=== PATIENT | female | born 1960 | race Caucasian/White ===

== ENCOUNTER 2018-05-30 16:17 | Inpatient (IN) ==
[2018-05-30 17:12] LABS: Baso # (Auto) 0.1 th/mm3 (0.0-0.2); Eos # (Auto) 0.1 th/mm3 (0.0-0.4); Eos % (Auto) 1.1 % (0.0-4.0); Hemoglobin 9.5 gm/dL (11.6-15.3); Lymph % (Auto) 16.6 % (9.0-44.0); Mean Corpuscular Volume 68.8 fL (80.0-100.0); Mean Platelet Volume 8.8 fL (7.0-11.0); Mono % (Auto) 15.7 % (0.0-8.0); Neut # (Auto) 4.1 th/mm3 (1.8-7.7); Neut % (Auto) 65.6 % (16.0-70.0); Platelet Count 143 th/mm3 (150-450); Red Blood Count 4.51 mil/mm3 (4.00-5.30); Red Cell Distribution Width 23.3 % (11.6-17.2); White Blood Count 6.3 th/mm3 (4.0-11.0)
[2018-05-30 17:20] LABS: Mean Corpuscular HGB Conc 30.6 % (32.0-36.0)
--- NOTE | 2018-05-30 17:23 | ED ---
HPI General Chief Complaint: Respiratory Symptoms Stated Complaint: SOB Time Seen by Provider: 05/30/18 16:38 Source: patient Mode of arrival: ambulatory Limitations: no limitations History of Present Illness 57-year-old female presents to the emergency room for evaluation of increasing dyspnea for the past 4 months. Shortness of breath is severe, worsened with exertion or lying flat. It improves with her inhaler. Patient states symptoms have really gotten severe over the past 2 months. She has history of CHF and COPD. She is supposed to be on home oxygen but has not been on it for a while. Patient came down on a bus from [facility] earlier today and was arrested for having an outstanding warrant for battery on an elderly person. While being transported to long-term, she complained of increasing chest pain and shortness of breath. When [facility] arrived her oxygen saturation was 85% on room air. She received a DuoNeb, albuterol treatment, and Solu-Medrol but reports no significant improvement in symptoms. States she is not on any diuretics. Patient has associated mildly productive cough and bilateral lower extremity swelling. She is compliant with her medications. She also has history of stroke and is on Eliquis and aspirin, diabetes, and hypertension. MD Complaint: Reports shortness of breath and cough Onset (ago): month(s) Severity: moderate Consistency/Duration: constant and progressively worsening Relieving factors: oxygen, bronchodilators and upright position Exacerbating factors: lying flat, exertion and coughing Known history of: Reports COPD, congestive heart failure and diabetes Associated symptoms: Reports chest pain, cough, wheezing, sputum production and orthopnea Treatment prior to arrival: Reports oxygen, bronchodilator and other (solumedrol ) Related Data Home oxygen amount: 4 liters Home Medications Medication Instructions Recorded Confirmed Unable to Obtain Home Meds 05/30/18 05/30/18 Allergies Allergy/AdvReac Type Severity Reaction Status Date / Time hydrocodone Allergy Mild Hives Verified 05/30/18 16:34 oxycodone Allergy Mild Hives Verified 05/30/18 16:34 Review of Systems ROS: all other systems reviewed are negative [facility] Social History Social History Substance History: No History of Abuse Second Hand Smoke Exposure: No Smoking Status: Former smoker How Often Do You Have a Drink Containing Alcohol: Never Recent Travel in [facility] within the Last 8 Weeks: No Recent Out of Country Travel within the Last 8 Weeks: No Exam Narrative Exam Narrative: GENERAL: Well-nourished, morbidly obese female no acute distress. Afebrile. Sitting up in bed. SKIN: Focused skin assessment warm/dry. HEAD: Normocephalic. EYES: No scleral icterus. No injection or drainage. NECK: Supple, trachea midline. No JVD or lymphadenopathy. CARDIOVASCULAR: Regular rate and rhythm without murmurs, gallops, or rubs. RESPIRATORY: Breath sounds equal bilaterally. No accessory muscle use. Patient has bilateral expiratory wheezes. Lung sounds distant. Bilateral crackles. MUSCULOSKELETAL: No cyanosis. 2+ pitting edema to bilateral lower extremities. Course Initial Documented Vital Signs Temperature 98.5 F 05/30/18 16:29 Pulse Rate 105 H 05/30/18 16:29 Respiratory Rate 22 05/30/18 16:29 Blood Pressure 154/76 H 05/30/18 16:29 Pulse Oximetry 100 05/30/18 16:29 Last Documented Vital Signs Temperature 98.5 F 05/30/18 16:29 Pulse Rate 115 H 05/30/18 18:00 Respiratory Rate 22 05/30/18 18:00 Blood Pressure 161/77 H 05/30/18 18:00 Pulse Oximetry 94 L 05/30/18 19:39 Medical Decision Making MDM Narrative Medical decision making narrative: 57-year-old female presents the emergency room via ambulance for evaluation of increasing shortness of breath over the past 4 months. She has history of COPD and CHF. States she is supposed to be on oxygen at home but has not been on it recently. She is compliant with her COPD medications but is not on any diuretics. Shortness of breath is exacerbated with lying down or exertion. She has associated mildly productive cough and bilateral lower extremity edema. When the ambulance arrived her oxygen saturation was 85% on room air. She received a DuoNeb, albuterol treatment, and Solu-Medrol and was placed on oxygen resulting in oxygen concentration of 100%. On arrival, patient was given 3 more duo nebs. Physical exam is reassuring. Patient is hard of hearing. She does not appear in any significant respiratory distress. She has bilateral crackles and expiratory wheezes. She also has 2+ pitting edema to bilateral lower extremities. IV access established and basic labs obtained. EKG shows sinus tachycardia with a rate of [address] changes. Signed off by my attending physician. Chest x-ray is negative. CBC shows mild anemia. CMP shows some evidence of dehydration. Troponin is less than 0.02. BNP is elevated at 443. Patient was given 40 mg of Lasix. 1 patient is taken off of oxygen, her saturations dropped to 50-60%. On oxygen, her saturations are steadily in the 90s. She will be admitted for hypoxia, CHF exacerbation, COPD exacerbation. I spoke to Dr. Shore who agrees to admit this patient to his service. Medical Screen Exam Complete: Yes Emergency Medical Condition: Yes Differential Diagnosis Differential Diagnosis: CHF exacerbation, COPD exacerbation, pneumonia, influenza, anxiety attack Lab Data Result diagrams: 05/30/18 16:50 05/30/18 16:50 Lab Results 05/30/18 05/30/18 05/30/18 Range/Units 16:50 16:50 16:50 WBC 6.3 (4.0-11.0) th/mm3 RBC 4.51 (4.00-5.30) mil/mm3 Hgb 9.5 L (11.6-15.3) gm/dL Hct 31.0 L (35.0-46.0) % MCV 68.8 L (80.0-100.0) fL MCH 21.0 L (27.0-34.0) pg MCHC 30.6 L (32.0-36.0) % RDW 23.3 H (11.6-17.2) % Plt Count 143 L (150-450) th/mm3 MPV 8.8 (7.0-11.0) fL Prelim Diff (Auto) Slide review pending Neut % (Auto) 65.6 (16.0-70.0) % Lymph % (Auto) 16.6 (9.0-44.0) % Dyer % (Auto) 15.7 H (0.0-8.0) % Eos % (Auto) 1.1 (0.0-4.0) % Baso % (Auto) 1.0 (0.0-2.0) % Neut # (Auto) 4.1 (1.8-7.7) th/mm3 Lymph # (Auto) 1.0 (1.0-4.8) th/mm3 Dyer # (Auto) 1.0 H (0.0-0.9) th/mm3 Eos # (Auto) 0.1 (0.0-0.4) th/mm3 Baso # (Auto) 0.1 (0.0-0.2) th/mm3 WBC Differential . Diff Scan Auto diff confirmed Differential Comment . Platelet Estimate Low L (Normal) Platelet Morphology Normal (Normal) Target Cells 1+ H (None) Ovalocytes 1+ H (None) PT 12.7 H (9.8-11.6) sec INR 1.3 Ratio APTT 23.1 L (23.4-31.7) sec Puncture Site Patient Temperature VBG pH (7.360-7.400) VBG pCO2 (44-48) mmHG VBG pO2 (35-40) mmHG VBG HCO3 (22-26) mmol/L VBG O2 Saturation (70-76) % VBG O2 Content (9.0-17.0) Vol % VBG Base Excess (-2-2) mmol/L VBG Carboxyhemoglobin (0-4) % VBG Methemoglobin (0-2) % Hemoglobin (12.0-16.0) G/DL Inspired O2 % Critical Value Sodium 134 L (136-145) meq/L Potassium 4.4 (3.5-5.1) meq/L Chloride 95 L (98-107) meq/L Carbon Dioxide 35.2 H (21.0-32.0) meq/L Anion Gap 4 L (5-15) meq/L BUN 26 H (7-18) mg/dL Creatinine 0.77 (0.50-1.00) mg/dL Estimated GFR 78 L (>89) mL/min Random Glucose 133 H (74-106) mg/dL Calcium 7.8 L (8.5-10.1) mg/dL Total Bilirubin 0.7 (0.2-1.0) mg/dL AST 90 H (15-37) U/L ALT 62 H (10-53) U/L Alkaline Phosphatase 206 H (45-117) U/L Troponin I (0.02-0.05) ng/mL B-Natriuretic Peptide (0-100) pg/mL Total Protein 7.2 (6.4-8.2) g/dL Albumin 2.9 L (3.4-5.0) g/dL 11/07/18 11/07/18 11/07/18 Range/Units 16:50 19:00 19:50 WBC (4.0-11.0) th/mm3 RBC (4.00-5.30) mil/mm3 Hgb (11.6-15.3) gm/dL Hct (35.0-46.0) % MCV (80.0-100.0) fL MCH (27.0-34.0) pg MCHC (32.0-36.0) % RDW (11.6-17.2) % Plt Count (150-450) th/mm3 MPV (7.0-11.0) fL Prelim Diff (Auto) Neut % (Auto) (16.0-70.0) % Lymph % (Auto) (9.0-44.0) % Dyer % (Auto) (0.0-8.0) % Eos % (Auto) (0.0-4.0) % Baso % (Auto) (0.0-2.0) % Neut # (Auto) (1.8-7.7) th/mm3 Lymph # (Auto) (1.0-4.8) th/mm3 Dyer # (Auto) (0.0-0.9) th/mm3 Eos # (Auto) (0.0-0.4) th/mm3 Baso # (Auto) (0.0-0.2) th/mm3 WBC Differential Diff Scan Differential Comment Platelet Estimate (Normal) Platelet Morphology (Normal) Target Cells (None) Ovalocytes (None) PT (9.8-11.6) sec INR Ratio APTT (23.4-31.7) sec Puncture Site Right radial Patient Temperature 98.6 VBG pH 7.24 L* (7.360-7.400) VBG pCO2 79 H* (44-48) mmHG VBG pO2 40 (35-40) mmHG VBG HCO3 33 H (22-26) mmol/L VBG O2 Saturation 60 L (70-76) % VBG O2 Content 8.4 L (9.0-17.0) Vol % VBG Base Excess 5.8 H (-2-2) mmol/L VBG Carboxyhemoglobin 1.9 (0-4) % VBG Methemoglobin 0.3 (0-2) % Hemoglobin 9.9 L (12.0-16.0) G/DL Inspired O2 21 % Critical Value Yes Sodium (136-145) meq/L Potassium (3.5-5.1) meq/L Chloride (98-107) meq/L Carbon Dioxide (21.0-32.0) meq/L Anion Gap (5-15) meq/L BUN (7-18) mg/dL Creatinine (0.50-1.00) mg/dL Estimated GFR (>89) mL/min Random Glucose (74-106) mg/dL Calcium (8.5-10.1) mg/dL Total Bilirubin (0.2-1.0) mg/dL AST (15-37) U/L ALT (10-53) U/L Alkaline Phosphatase (45-117) U/L Troponin I Less than 0.02 L (0.02-0.05) ng/mL B-Natriuretic Peptide 443 H (0-100) pg/mL Total Protein (6.4-8.2) g/dL Albumin (3.4-5.0) g/dL Imaging Data Radiologist's impression: Chest X-Ray 05/30/18 16:41 CONCLUSION: Diffuse vascular prominence. No evidence of acute airspace disease. Discharge Plan Discharge Disposition Patient Disposition: 30 Still Patient Discharge Condition Condition: Stable Physicians Team ED Provider: Kayli Marroquin ED Midlevel Provider: Mary Deluna Primary Care Provider: UNKNOWN, Rxs /Orders / Referrals /Forms Prescriptions: No Action Unable to Obtain Home Meds RF: 0 Discharge Interventions Interventions: Vital Signs Last Done: 05/30/18 18:00 Status ED Status: Pending Admission
[2018-05-30 17:25] LABS: Activated Partial Thrombo Time 23.1 sec (23.4-31.7); INR 1.3 Ratio; Prothrombin Time 12.7 sec (9.8-11.6)
[2018-05-30 17:41] LABS: Target Cells 1+
[2018-05-30 17:42] LABS: Ovalocytes 1+; Platelet Morphology Normal (Normal)
--- NOTE | 2018-05-30 17:42 | XR ---
EXAM DATE: 05/30/2018 5:40 PM EST AGE/SEX: 57 years / Female INDICATIONS: . Shortness of breath. CLINICAL DATA: This is the patient's initial encounter. Patient reports that signs and symptoms have been present for 1 day and indicates a pain score of 6/10. MEDICAL/SURGICAL HISTORY: Chronic obstructive pulmonary disease. None. COMPARISON: [facility], CHEST SINGLE AP, 10/15/2015. . FINDINGS: Mild vascular prominence is noted throughout both lungs. There is no evidence of interstitial edema o r consolidating airspace disease. Heart is mildly enlarged. CONCLUSION: Diffuse vascular prominence. No evidence of acute airspace disease. Electronically signed by: Hira Ahmadi MD 05/30/2018 5:41 PM EST
[2018-05-30 17:44] LABS: Alkaline Phosphatase 206 U/L (45-117); Total Protein 7.2 g/dL (6.4-8.2)
[2018-05-30 17:45] LABS: Alanine Aminotransferase 62 U/L (10-53); Albumin 2.9 g/dL (3.4-5.0); Anion Gap 4 meq/L (5-15); Aspartate Aminotransferase 90 U/L (15-37); Blood Urea Nitrogen 26 mg/dL (7-18); Calcium 7.8 mg/dL (8.5-10.1); Carbon Dioxide 35.2 meq/L (21.0-32.0); Chloride 95 meq/L (98-107); Glomerular Filtration Rate 78 mL/min (>89); Glucose,Random 133 mg/dL (74-106); Potassium 4.4 meq/L (3.5-5.1); Sodium 134 meq/L (136-145)
[2018-05-30 19:15] LABS: VBG Base Excess 5.8 mmol/L (-2-2); VBG Blood Gas Oxygen Content 8.4 Vol % (9.0-17.0); VBG PCO2 79 mmHG (44-48); VBG PH 7.24 (7.360-7.400); VBG PO2 40 mmHG (35-40)
[2018-05-30 20:40] LABS: Bilirubin,Urine Negative (Negative); Clarity,Urine Clear (Clear); Color,Urine Colorless (Yellw/Straw); Glucose,Urine (UA) Negative (Negative); Leukocyte Esterase,Urine Negative (Negative); Mucus,Urine Few /lpf (Occasional); Nitrite,Urine Negative (Negative); Specific Gravity,Urine 1.003 (1.002-1.035)
[2018-05-30] MEDS ORDERED: Bisacodyl 10 MG Supp RECTAL PRN (20:44)
[2018-05-30] MEDS ORDERED: Azithromycin Inj 500 MG in Sodium Chlor 0.9% Inj 250 ML IV.SIG SCH (21:00)
[2018-05-30] MEDS: MethylPREDNISolone Sod Succinate Inj 40 MG/ML Vial IV.PUSH SCH (21:26)
[2018-05-30] MEDS: Azithromycin Inj 500 MG in Sodium Chlor 0.9% Inj 250 ML IV.SIG SCH (21:27)
[2018-05-30 21:50] LABS: ABG Base Excess 8.7 mmol/L (-2-2); ABG PCO2 77 mmHg (38-42); ABG PO2 66 mmHg (61-120)
[2018-05-30] MEDS: Budesonide-Formoterol 160/4.5 MCG 6 GM Inhaler INH SCH (22:49)
[2018-05-31 00:10] LABS: ABG Base Excess 6.1 mmol/L (-2-2); ABG PCO2 77 mmHg (38-42); ABG PO2 54 mmHG (61-120)
[2018-05-31] MEDS ORDERED: Dextrose 50% in Water 50 ML Vial IV.PUSH PRN (01:41)
--- NOTE | 2018-05-31 01:58 | P.HPIM ---
History of Present Illness Primary Care Physician: UNKNOWN History of Present Illness: 57-year-old female with a history of stroke on Eliquis, aspirin, diabetes, COPD on 2 L of oxygen continuously, hypertension who is not been on her medications or oxygen for the past month. She traveled down here from [facility] on a bus, arriving 05/30. She was arrested by police due to an open warrant for elderly abuse. All the way to correction complained of shortness of breath, found to have oxygen saturation of 85 on room air, and brought to the ER. Patient reports 3-month history of progressively worsening shortness of breath, cough productive of yellow sputum. She reports pleuritic type chest pain, worse with coughing and with deep breathing which has been present over the past several days. She denies any acute swelling in her extremities. Denies any nausea or vomiting. Again, she has been off all medications as well as oxygen for the past month. Inpatient Certification: I certify that the inpatient services were ordered in accordance with Medicare regulations governing the order. This includes certification that hospital inpatient services are reasonable and necessary and in the case of services not specified as inpatient-only under 42 CFR 419.22(n), that they are appropriately provided as inpatient services in accordance to with the 2-midnight benchmark under 43 CFR 412.3(e) Estimated Total Length of Stay (Days): 3 Plans for Post Hospital Care: Not yet determined Review of Systems All other systems reviewed negative except as stated in HPI [facility] - History History Provided By: Patient - Medical / Surgical Hx Neg / Unobtainable Surgical History: No Previous Surgery - Medical History Medical History: Medical History (Last Updated 05/31/18 @ 01:48 by Tay Shore MD) COPD (chronic obstructive pulmonary disease) Cataract Cirrhosis - Family History Family History: Family History (Last Updated 05/31/18 @ 01:48 by Tay Shore MD) Other Family history non-contributory - Social History I have reviewed the patient's Social History: Yes - Tobacco History Second Hand Smoke Exposure: No Smoking Status: Former smoker - Alcohol History How Often Do You Have a Drink Containing Alcohol: Never - Substance Use History Substance History: No History of Abuse - Travel History Recent Travel in the [facility] Within the Last 8 Weeks: No Recent Travel Out of the Country Within the Last 8 Weeks: No - Immunization History Tetanus Immunization: Unsure Medications and Allergies Active Medications: Active Medications Al Hydroxide/Mg Hydroxide (Milk Of Magnesia Liq) 30 ml PO Q12H PRN PRN Reason: Mild Constipation Albuterol (Duoneb Neb ([facility])) 1 ampul NEB Q4HR NEB [facility] Last Admin: 05/31/18 00:48 Dose: 1 ampul Bisacodyl (Dulcolax Supp) 10 mg RECTAL DAILY PRN PRN Reason: SEVERE CONSITIPATION Budesonide/Formoterol Fumarate (Symbicort 160/4.5 Mcg Inh) 2 puff INH BID [facility] Last Admin: 05/30/18 22:49 Dose: Not Given Chlorhexidine Gluconate (Chlorhexidine 2% Cloth) 3 pack TOPICAL DAILY@0400 [facility] Stop: 06/05/18 03:59 Chlorhexidine Gluconate (Chlorhexidine 2% Cloth) 3 pack TOPICAL DAILY@0400 PRN PRN Reason: Extra cloth needed Stop: 06/05/18 03:59 Azithromycin 500 mg/ Sodium (Chloride) 250 mls @ 250 mls/hr IV.SIG Q24H [facility] Last Infusion: 05/30/18 22:27 Dose: Infused Lactulose (Lactulose Liq) 30 ml PO DAILY PRN PRN Reason: SEVERE CONSITIPATION Methylprednisolone Sodium Succinate (Solumedrol Inj) 60 mg IV.PUSH Q6H [facility] Last Admin: 05/30/18 21:26 Dose: 60 mg Sennosides (Senokot) 17.2 mg PO Q12H PRN PRN Reason: Moderate Constipation Sodium Chloride (Ns Flush) 2 ml IV.FLUSH BID [facility] Last Admin: 05/30/18 21:33 Dose: 2 ml Sodium Chloride (Ns Flush) 2 ml IV.FLUSH PRN PRN PRN Reason: FLUSH AFTER USING IV ACCESS Allergies Allergy/AdvReac Type Severity Reaction Status Date / Time hydrocodone Allergy Mild Hives Verified 05/30/18 16:34 oxycodone Allergy Mild Hives Verified 05/30/18 16:34 Home Medications Medication Instructions Recorded Confirmed Type Unable to Obtain Home Meds 05/30/18 05/30/18 History Exam Vital signs: Vital Signs 05/30/18 16:29 05/30/18 16:47 05/30/18 17:15 Temperature 98.5 F Pulse Rate 105 H 111 H 114 H Respiratory Rate 22 22 Blood Pressure 154/76 H 129/81 Pulse Oximetry 100 05/30/18 17:19 05/30/18 18:00 05/30/18 19:39 Temperature Pulse Rate 115 H Respiratory Rate 22 Blood Pressure 161/77 H Pulse Oximetry 94 L 98 94 L 05/30/18 22:30 05/30/18 23:00 05/30/18 23:10 Temperature 98.6 F Pulse Rate 119 H 110 H Respiratory Rate 30 H 34 H Blood Pressure 138/85 136/77 Pulse Oximetry 94 L 93 L 99 05/31/18 00:00 05/31/18 00:51 05/31/18 01:00 Temperature 98.6 F Pulse Rate 106 H 101 H 112 H Respiratory Rate 33 H 22 34 H Blood Pressure 143/78 H 154/75 H Pulse Oximetry 95 96 97 Intake & Output 05/30/18 05/30/18 05/31/18 06:59 18:59 06:59 Intake Total 250 / 250 Balance 250 / 250 Weight 104.326 kg 95.1 kg Intake: IV 250 / 250 Azithromycin Inj 500 MG In NS 250 / 250 Inj 250 ML @ 250 mls/hr IV.SIG Q24H [facility] Rx#:[id number] Other: Date of Last Bowel Movement 05/29/18 Weight On Admission 95.1 kg Narrative: GENERAL: Patient sitting up in bed. Appears comfortable. Alert and oriented x3. She does have mildly dysarthric speech. SKIN: Warm and dry. HEAD: Atraumatic. Normocephalic. EYES: Pupils unreactive, left pupil clouded. Patient reports this is at baseline, has had bilateral eye surgery. No scleral icterus. No injection or drainage. ENT: No nasal bleeding or discharge. Mucous membranes pink and moist. NECK: Trachea midline. No JVD. CARDIOVASCULAR: Regular rate and rhythm. RESPIRATORY: No accessory muscle use. Clear to auscultation. Breath sounds equal bilaterally. Diminished breath sounds secondary to body habitus. GASTROINTESTINAL: Abdomen soft, non-tender, nondistended. Hepatic and splenic margins not palpable. MUSCULOSKELETAL: Extremities without clubbing, cyanosis. Trace bilateral lower extremity edema.. No obvious deformities. NEUROLOGICAL: Awake and alert. No obvious cranial nerve deficits. Motor grossly within normal limits. Five out of 5 muscle strength in the arms and legs. PSYCHIATRIC: Appropriate mood and affect; insight and judgment normal. Results - Labs CBC & Chem 7: 05/30/18 16:50 05/30/18 16:50 Labs: Short CBC 05/30/18 Range/Units 16:50 WBC 6.3 (4.0-11.0) th/mm3 Hgb 9.5 L (11.6-15.3) gm/dL Hct 31.0 L (35.0-46.0) % Plt Count 143 L (150-450) th/mm3 BMP 05/30/18 16:50 Sodium 134 L Potassium 4.4 Chloride 95 L Carbon Dioxide 35.2 H BUN 26 H Creatinine 0.77 Calcium 7.8 L Cardiac Enzymes 05/30/18 Range/Units 19:50 Troponin I Less than 0.02 L (0.02-0.05) ng/mL Liver Function 05/30/18 Range/Units 16:50 Total Bilirubin 0.7 (0.2-1.0) mg/dL AST 90 H (15-37) U/L ALT 62 H (10-53) U/L Alkaline Phosphatase 206 H (45-117) U/L Albumin 2.9 L (3.4-5.0) g/dL Urine 05/30/18 Range/Units 20:20 Urine Color Colorless (Yellw/Straw) Urine Clarity Clear (Clear) Urine pH 5.0 (5.0-8.5) Ur Specific Wilbur 1.003 (1.002-1.035) Urine Protein Negative (Neg-Trace) mg/dL Urine Glucose (UA) Negative (Negative) mg/dL - Imaging Impressions Chest X-Ray 05/30/18 16:41 CONCLUSION: Diffuse vascular prominence. No evidence of acute airspace disease. Caprini VTE Risk Assessment Caprini VTE Risk Assessment: No/Low Risk (score <= 1) Caprini Risk Assessment Model: Point Value = 1 Point Value = 2 Point Value = 3 Point Value = 5 Age 41-60 Minor surgery BMI > 25 kg/m2 Swollen legs Varicose veins or History of unexplained or recurrent spontaneous Oral contraceptives or hormone replacement Sepsis (< 1 month) Serious lung disease, including pneumonia (< 1 month) Abnormal pulmonary function Acute myocardial infarction Congestive heart failure (< 1 month) History of inflammatory bowel disease Medical patient at bed rest Age 61-74 Arthroscopic surgery Major open surgery (> 45 min) Laparoscopic surgery (> 45 min) Malignancy Confined to bed (> 72 hours) Immobilizing plaster cast Central venous access Age >= 75 History of VTE Family history of VTE Factor V Leiden Prothrombin [id number] Lupus anticoagulant Anticardiolipin antibodies Elevated serum homocysteine Heparin-induced thrombocytopenia Other congenital or acquired thrombophilia Stroke (< 1 month) Elective arthroplasty Hip, pelvis, or leg fracture Acute spinal cord injury (< 1 month) Prophylaxis Regimen: Total Risk Factor Score Risk Level Prophylaxis Regimen 0-1 Low Early ambulation 2 Moderate Order ONE of the following: *Sequential Compression Device (SCD) *Heparin 5000 units SQ BID 3-4 Higher Order ONE of the following medications: *Heparin 5000 units SQ TID *Enoxaparin/Lovenox 40 mg SQ daily (WT < 150 kg, CrCl > 30 mL/min) *Enoxaparin/Lovenox 30 mg SQ daily (WT < 150 kg, CrCl > 10-29 mL/min) *Enoxaparin/Lovenox 30 mg SQ BID (WT < 150 kg, CrCl > 30 mL/min) AND/OR *Sequential Compression Device (SCD) 5 or more Highest Order ONE of the following medications: *Heparin 5000 units SQ TID (Preferred with Epidurals) *Enoxaparin/Lovenox 40 mg SQ daily (WT < 150 kg, CrCl > 30 mL/min) *Enoxaparin/Lovenox 30 mg SQ daily (WT < 150 kg, CrCl > 10-29 mL/min) *Enoxaparin/Lovenox 30 mg SQ BID (WT < 150 kg, CrCl > 30 mL/min) AND *Sequential Compression Device (SCD) Assessment and Plan - Plan //Acute hypercapnic respiratory failure //COPD exacerbation //possible CHF exacerbation pCO2 in the 70s. Unknown baseline. -Chest x-ray with diffuse vascular prominence. BNP 443 -There is a possibility that patient is at baseline and simply does not want to go to correction (she has a warrant for elder abuse and officer is at bedside.). -Echo pending. -Did not tolerate BiPAP. Appears to be breathing comfortably however. Will start on IV steroids, gentle diuresis, duo nebs. Close monitoring in ICU. //Pleuritic type chest pain. Due to recent travel, will check CT pulmonary angiogram. Check CT pulmonary angiogram. //History of stroke. Reportedly on Eliquis. Will start on aspirin. We will need to obtain home meds. Appreciate nursing assistance. //Diabetes mellitus. Chronic. Glucose elevated 133. Will be on steroids. Will start on diabetic diet and insulin sliding scale. Monitor. //Transaminitis //Patient reports history of cirrhosis. -Likely chronic. Will monitor. Discussed Condition With: Patient, nurse, ED physician. Discharge Planning: Pending improvement or stability. Patient has a warrant for her arrest and officer is at bedside.
[2018-05-31] MEDS ORDERED: Haloperidol Inj 5 MG/ML Ampul IV.PUSH ONE (02:35)
[2018-05-31] MEDS: MethylPREDNISolone Sod Succinate Inj 40 MG/ML Vial IV.PUSH SCH ×4 (02:59→21:18)
[2018-05-31] MEDS: Insulin NovoLOG Aspart Correctional Sugar Inj SQ SCH ×5 (02:59→21:19)
--- NOTE | 2018-05-31 03:27 | CT ---
EXAM DATE: 05/31/2018 2:58 AM EST AGE/SEX: 57 years / Female INDICATIONS: Shortness of breath. CLINICAL DATA: This is the patient's initial encounter. Patient reports that signs and symptoms have been present for 1 day and indicates a pain score of 0/10. MEDICAL/SURGICAL HISTORY: Chronic obstructive pulmonary disease. None. RADIATION DOSE: 23.11 CTDI (mGy) COMPARISON: . TECHNIQUE: Volumetric scanning was performed using a multi-row detector CT scanner during bolus infu ginny of 75 ml Omnipaque 350 (iohexol) nonionic water-soluble contrast as a single exam dose. The clay a was post processed with a variety of visualization algorithms including full volume maximum intensi ty projection and sliding thin slab reformation. Using automated exposure control and adjustment of the mA and/or kV according to patient size, radiation dose was kept as low as reasonably achievable t o obtain optimal diagnostic quality images. DICOM format image data is available electronically for review and comparison. FINDINGS: Pulmonary Arteries: No filling defects are seen in the pulmonary arteries out to the subsegmental ve ssels. The left and right pulmonary arteries are normal in diameter. Lung: Small infiltrate in the posterior right lung base. Subpleural bleb in the anteromedial left up per lobe Effusion: None. Mediastinum: No evidence of mediastinal or hilar adenopathy. Other: The axilla is unremarkable. CONCLUSION: This study is negative for pulmonary embolism. Electronically signed by: Favio Flores MD 05/31/2018 3:25 AM EST
[2018-05-31] MEDS ORDERED: Chlorhexidine Gluconate 2% 1 Pack (2 Cloths) TOPICAL PRN (04:00)
[2018-05-31] MEDS: Chlorhexidine Gluconate 2% 1 Pack (2 Cloths) TOPICAL SCH (04:00)
[2018-05-31 05:52] LABS: Baso % (Auto) 0.1 % (0.0-2.0); Hematocrit 31.4 % (35.0-46.0); Hemoglobin 9.1 gm/dL (11.6-15.3); Lymph # (Auto) 0.2 th/mm3 (1.0-4.8); Lymph % (Auto) 8.5 % (9.0-44.0); Mean Corpuscular Hemoglobin 20.5 pg (27.0-34.0); Mean Corpuscular Volume 70.6 fL (80.0-100.0); Mean Platelet Volume 8.7 fL (7.0-11.0); Mono # (Auto) 0.1 th/mm3 (0.0-0.9); Mono % (Auto) 3.3 % (0.0-8.0); Neut # (Auto) 2.5 th/mm3 (1.8-7.7); Neut % (Auto) 88.1 % (16.0-70.0); Platelet Count 119 th/mm3 (150-450); Red Blood Count 4.45 mil/mm3 (4.00-5.30); Red Cell Distribution Width 23.6 % (11.6-17.2); White Blood Count 2.8 th/mm3 (4.0-11.0)
[2018-05-31 05:54] LABS: ABG Base Excess 8.5 mmol/L (-2-2); ABG PCO2 79 mmHg (38-42); ABG PO2 53 mmHG (61-120)
[2018-05-31 06:10] LABS: Alanine Aminotransferase 60 U/L (10-53); Albumin 2.8 g/dL (3.4-5.0); Anion Gap 3 meq/L (5-15); Aspartate Aminotransferase 66 U/L (15-37); Blood Urea Nitrogen 20 mg/dL (7-18); Calcium 7.9 mg/dL (8.5-10.1); Carbon Dioxide 36.7 meq/L (21.0-32.0); Chloride 99 meq/L (98-107); Glomerular Filtration Rate Greater Than 89 mL/min (>89); Glucose,Random 199 mg/dL (74-106); Potassium 4.3 meq/L (3.5-5.1); Sodium 139 meq/L (136-145)
[2018-05-31 06:12] LABS: Alkaline Phosphatase 185 U/L (45-117)
[2018-05-31 07:21] LABS: Lymphocytes 4 % (9-44); Metamyelocytes 1 % (0-1); Monocytes 3 % (0-8); Platelet Morphology Normal (Normal); Tallied Nucleated RBC 6 (0-0); Target Cells 1+
[2018-05-31] MEDS ORDERED: Haloperidol Inj 5 MG/ML Ampul IV.PUSH PRN (08:09)
[2018-05-31] MEDS ORDERED: LORazepam 1 MG Tablet PO PRN (08:09)
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
[2018-05-31 09:48] LABS: % Iron Saturation 1.8 % (20-50); Folate 10.6 ng/mL (3.1-17.5)
[2018-05-31] MEDS: Multivitamin Inj 10 ML, Thiamine Inj 100 MG, Folic Acid Inj 1 MG in Sodium Chloride 0.4... IV.SIG SCH (10:08)
--- NOTE | 2018-05-31 10:14 | ECG ---
Date Performed: 05/30/2018 Time Performed: 16:48:28 PTAGE: 57 years EKG: SINUS TACHYCARDIA ABNORMAL RHYTHM ECG Since the PREVIOUS TRACING , no significant change noted PREVIOUS TRACIN10/15/2015 08.07 DOCTOR: Matt Mascorro Interpretating Date/Time 05/31/2018 10:12:36
--- NOTE | 2018-05-31 13:02 | ECHRPT ---
Indication: CARDIOMYOPATHY CONCLUSIONS The left ventricular systolic function is hyperdynamic with an estimated ejection fraction in the ra nge of 65- 70%. Normal left ventricular size. Wall thickness is normal. No regional wall motion abnormalities are present. Mild thickening of the tricuspid valve leaflets. There is mild tricuspid valve regurgitation. The estimated pulmonary arterial pressure is 63 mmHg. aortic valve mean gradient = 13 mm hg c/w mild stenosis BP: / HR: Rhythm: Sinus MEASUREMENTS (Male / Female) Normal Values Technical Quality:Poor 2D ECHO LV Diastolic Diameter PLAX 4.8 cm 4.2 - 5.9 / 3.9 - 5.3 cm LV Systolic Diameter PLAX 3.0 cm IVS Diastolic Thickness 1.1 cm 0.6 - 1.0 / 0.6 - 0.9 cm LVPW Diastolic Thickness 1.1 cm 0.6 - 1.0 / 0.6 - 0.9 cm LV Relative Wall Thickness 0.5 LVOT Diameter 1.9 cm LA Systolic Diameter LX 3.5 cm 3.0 - 4.0 / 2.7 - 3.8 cm M-MODE Aortic Root Diameter MM 2.6 cm AV Cusp Separation MM 1.0 cm DOPPLER AV Peak Velocity 243.5 cm/s AV Peak Gradient 23.7 mmHg AV Mean Gradient 12.0 mmHg AV Velocity Time Integral 35.8 cm LVOT Peak Velocity 173.0 cm/s LVOT Peak Gradient 12.0 mmHg LVOT Velocity Time Integral 29.1 cm AV Area Cont Eq vti 2.3 cm AV Area Cont Eq pk 2.0 cm MV Area PHT 4.9 cm Mitral E Point Velocity 110.0 cm/s Mitral A Point Velocity 125.0 cm/s Mitral E to A Ratio 0.9 TR Peak Velocity 364.0 cm/s TR Peak Gradient 53.0 mmHg Right Atrial Pressure 10.0 mmHg Pulmonary Artery Systolic Pressu 63.0 mmHg Right Ventricular Systolic Press 63.0 mmHg PV Peak Velocity 162.0 cm/s PV Peak Gradient 10.5 mmHg FINDINGS LEFT VENTRICLE The left ventricular systolic function is hyperdynamic with an estimated ejection fraction in the ra nge of 65- 70%. Normal left ventricular size. Wall thickness is normal. No regional wall motion abnormalities are present. RIGHT VENTRICLE Normal right ventricular size and systolic function. LEFT ATRIUM The left atrial size is normal. RIGHT ATRIUM The right atrial size is normal. ATRIAL SEPTUM Normal atrial septal thickness without atrial level shunting by limited color doppler interrogation. AORTA The aortic root and proximal ascending aorta are normal in size on limited imaging. MITRAL VALVE Structurally normal mitral valve. No mitral valve stenosis or regurgitation. AORTIC VALVE Trileaflet aortic valve. No aortic valve stenosis or regurgitation. TRICUSPID VALVE Mild thickening of the tricuspid valve leaflets. There is mild tricuspid valve regurgitation. The estimated pulmonary arterial pressure is 63 mmHg. PULMONARY VALVE No pulmonary valve regurgitation or stenosis. VESSELS The inferior vena cava is normal in size. PERICARDIUM No pericardial effusion. Hal Chaudhry MD, FACC, FSCAI (Electronically Signed) Final Date:31 May 2018 13:00
[2018-05-31] MEDS: Budesonide-Formoterol 160/4.5 MCG 6 GM Inhaler INH SCH ×2 (15:05→21:19)
--- NOTE | 2018-05-31 16:08 | MB ---
cc: Donald Bennett MD DATE: 05/31/2018 REASON FOR CONSULTATION: COPD exacerbation. HISTORY OF PRESENT ILLNESS: The patient is a 57-year-old female with a known history of COPD, long smoking history, continued to smoke up until the time of hospitalization. The patient has history of previous stroke. She is diabetic, hypertensive and she has oxygen therapy at home at 2 liters nasal cannula. Complains of increasing shortness of breath for about a week, progressively worse. She was on the way to care home upon presentation; however, brought to the emergency room because of increasing shortness of breath, oxygen saturation on room air at 85%. She has not been using her oxygen apparently for weeks now. PAST MEDICAL HISTORY: COPD, hypertension, diabetes mellitus, respiratory failure, on oxygen therapy, and previous CVA. FAMILY HISTORY: Noncontributory. SOCIAL HISTORY: She smokes a pack of cigarettes a day. She does not drink alcohol. No TB. No industrial exposure. MEDICATIONS: Include: 1. DuoNeb every 4 hours. 2. Budesonide/formoterol. 3. Zithromax. 4. Solu-Medrol. ALLERGIES: HYDROCODONE, OXYCODONE. REVIEW OF SYSTEMS: A 12-point review of systems as per HPI and past history, otherwise negative. PHYSICAL EXAMINATION: VITAL SIGNS: Temperature 98, pulse 100, respirations 20, blood pressure 150/70, oxygen saturation 94% on oxygen via nasal cannula. HEENT: Unremarkable. Eyes without icterus. NECK: Without adenopathy, thyroid enlargement. Central trachea. CHEST: Scattered rhonchi bilaterally. CARDIAC: PMI not appreciated. S1, S2 audible. No murmur. No rub. ABDOMEN: Lax. Audible bowel sounds. PSYCHIATRIC: No clubbing, cyanosis, edema. SKIN: Normal. LYMPHATIC: No lymphadenopathy. LABORATORY DATA: White count 6000, hemoglobin 9.5, hematocrit 31, platelets 143,000. Sodium 134, potassium 4.4, BUN 26, creatinine 0.7. Chest x-ray, vascular prominence, no acute infiltrate. IMPRESSION: 1. Chronic obstructive pulmonary disease exacerbation. 2. Hypoxic respiratory failure. 3. Obesity. 4. Tobacco abuse. 5. Diabetes mellitus. 6. Hypertension. 7. History of cerebrovascular accident. PLAN: The patient will be maintained on oxygen therapy as needed, bronchodilator therapy, steroid therapy as well as antibiotic therapy continued. We will check her baseline pulmonary function. I do thank you for asking me to partake in the Ms. Rodriguez's care. MD AMARI Reeves/luna , 03:24 PM , 03:34 PM
[2018-05-31 17:23] LABS: ABG Base Excess 11.2 mmol/L (-2-2); ABG PCO2 79 mmHg (38-42); ABG PO2 71 mmHG (61-120)
[2018-05-31] MEDS ORDERED: Azithromycin Inj 500 MG in Sodium Chlor 0.9% Inj 250 ML IV.SIG SCH (21:00)
[2018-05-31] MEDS: Azithromycin Inj 500 MG in Sodium Chlor 0.9% Inj 250 ML IV.SIG SCH (21:18)
[2018-06-01] MEDS: Chlorhexidine Gluconate 2% 1 Pack (2 Cloths) TOPICAL SCH (03:09)
[2018-06-01] MEDS: Insulin NovoLOG Aspart Correctional Sugar Inj SQ SCH ×5 (03:09→20:34)
[2018-06-01] MEDS: MethylPREDNISolone Sod Succinate Inj 40 MG/ML Vial IV.PUSH SCH ×4 (03:09→20:33)
[2018-06-01 06:23] LABS: Baso % (Auto) 0.3 % (0.0-2.0); Hematocrit 30.6 % (35.0-46.0); Lymph # (Auto) 0.3 th/mm3 (1.0-4.8); Mean Corpuscular Hemoglobin 20.4 pg (27.0-34.0); Mean Corpuscular Volume 69.7 fL (80.0-100.0); Mean Platelet Volume 8.6 fL (7.0-11.0); Mono # (Auto) 0.5 th/mm3 (0.0-0.9); Mono % (Auto) 7.5 % (0.0-8.0); Neut # (Auto) 6.1 th/mm3 (1.8-7.7); Neut % (Auto) 88.2 % (16.0-70.0); Platelet Count 108 th/mm3 (150-450); Red Blood Count 4.39 mil/mm3 (4.00-5.30); Red Cell Distribution Width 23.3 % (11.6-17.2); White Blood Count 6.9 th/mm3 (4.0-11.0)
[2018-06-01 06:26] LABS: Mean Corpuscular HGB Conc 29.3 % (32.0-36.0)
[2018-06-01 06:43] LABS: Albumin 2.9 g/dL (3.4-5.0); Anion Gap 2 meq/L (5-15); Aspartate Aminotransferase 50 U/L (15-37); Blood Urea Nitrogen 22 mg/dL (7-18); Calcium 8.1 mg/dL (8.5-10.1); Carbon Dioxide 41.4 meq/L (21.0-32.0); Chloride 101 meq/L (98-107); Glomerular Filtration Rate Greater Than 89 mL/min (>89); Glucose,Random 143 mg/dL (74-106); Potassium 4.6 meq/L (3.5-5.1); Sodium 144 meq/L (136-145)
[2018-06-01 06:46] LABS: Alanine Aminotransferase 54 U/L (10-53); Alkaline Phosphatase 169 U/L (45-117)
[2018-06-01 07:26] LABS: Lymphocytes 2 % (9-44); Monocytes 5 % (0-8); Stomatocytes 1+; Tallied Nucleated RBC 7 (0-0); Target Cells 1+
[2018-06-01 07:27] LABS: Platelet Morphology Normal (Normal)
--- NOTE | 2018-06-01 08:15 | P.PNIM ---
Subjective Interval history: f/u; respiratory failure/ alcohol withdrawal with moderate sob and wheezing; on oxygen via [place]. has dry cough- no fever. complaining of mild headache. d/w the RN and no other acute issues over night. Physical Exam Vital signs: Vital Signs 05/31/18 08:36 05/31/18 09:00 05/31/18 10:00 Temperature Pulse Rate 114 H 101 H 111 H Respiratory Rate 24 26 H 40 H Blood Pressure 129/83 146/68 H Pulse Oximetry 92 L 94 L 92 L 05/31/18 10:21 05/31/18 11:00 05/31/18 11:23 Temperature Pulse Rate 124 H 110 H 106 H Respiratory Rate 28 H 18 22 Blood Pressure 144/66 H Pulse Oximetry 96 05/31/18 12:00 05/31/18 13:00 05/31/18 14:00 Temperature 98.6 F Pulse Rate 109 H 104 H 115 H Respiratory Rate 24 13 23 Blood Pressure 145/70 H 155/71 H 173/77 H Pulse Oximetry 97 100 05/31/18 14:01 05/31/18 15:00 05/31/18 15:55 Temperature Pulse Rate 115 H 114 H 107 H Respiratory Rate 26 H 22 20 Blood Pressure 173/77 H 159/73 H Pulse Oximetry 94 L 05/31/18 16:00 05/31/18 17:00 05/31/18 18:00 Temperature 98.6 F Pulse Rate 108 H 111 H 115 H Respiratory Rate 28 H 37 H 24 Blood Pressure 142/71 H 143/63 H 126/56 L Pulse Oximetry 100 94 L 96 05/31/18 19:00 05/31/18 20:00 05/31/18 20:11 Temperature 98.1 F Pulse Rate 109 H 106 H 108 H Respiratory Rate 15 13 14 Blood Pressure 114/57 L 107/57 L Pulse Oximetry 95 98 05/31/18 20:12 05/31/18 21:00 05/31/18 22:00 Temperature Pulse Rate 110 H 112 H Respiratory Rate 13 26 H Blood Pressure 112/58 L 110/58 L Pulse Oximetry 97 96 94 L 05/31/18 23:00 05/31/18 23:17 06/01/18 00:00 Temperature Pulse Rate 109 H 109 H 109 H Respiratory Rate 25 H 18 24 Blood Pressure 118/66 126/68 Pulse Oximetry 95 98 06/01/18 01:00 06/01/18 02:00 06/01/18 03:00 Temperature Pulse Rate 109 H 103 H 107 H Respiratory Rate 13 17 19 Blood Pressure 136/73 122/62 151/74 H Pulse Oximetry 97 95 95 06/01/18 04:00 06/01/18 04:31 06/01/18 05:00 Temperature 98.8 F Pulse Rate 101 H 101 H 101 H Respiratory Rate 12 30 H 11 L Blood Pressure 119/57 L 116/60 Pulse Oximetry 96 95 06/01/18 06:00 06/01/18 08:04 Temperature Pulse Rate 111 H 100 H Respiratory Rate 26 H 30 H Blood Pressure 144/73 H Pulse Oximetry 91 L 96 Intake & Output 05/31/18 06/01/18 06/01/18 18:59 06:59 18:59 Intake Total 1531.2 / 1531.2 730 / 730 Output Total 700 / 700 Balance 831.2 / 831.2 730 / 730 Weight 93.6 kg Intake: IV 511.2 / 511.2 250 / 250 Azithromycin Inj 500 MG In NS 250 / 250 Inj 250 ML @ 250 mls/hr IV.SIG Q24H [facility] Rx#:[id number] [id number] Inj 10 ML Thiamine Inj 511.2 / 511.2 100 MG Folvite Inj 1 MG In 1/2 Normal Saline Inj 500 ML @ 127. 8 mls/hr IV.SIG Q24H [facility] Rx#: [id number] Oral 1020 / 1020 480 / 480 Output: Urine 700 / 700 Other: # Voids 3 Date of Last Bowel Movement 05/29/18 05/29/18 # Bowel Movements 0 - Constitutional moderate distress - Routine Respiratory Exam Present: prolonged expiratory phase, wheezes - Routine Cardiovascular Exam Present: RRR, tachycardia - Routine Abdominal Exam Present: soft - Routine Extremities Exam Comments: no pedal edema. - Routine Neurological Exam Present: alert, oriented X3 Results - Labs CBC & Chem 7: 06/01/18 06:12 06/01/18 06:12 Laboratory Results - last 24 hr 05/31/18 05/31/18 05/31/18 04:59 07:50 12:03 WBC RBC Hgb Hct MCV MCH MCHC RDW Plt Count MPV Prelim Diff (Auto) Neut % (Auto) Lymph % (Auto) [place] % (Auto) Eos % (Auto) Baso % (Auto) Neut # (Auto) Lymph # (Auto) [place] # (Auto) Eos # (Auto) Baso # (Auto) WBC Differential Seg Neuts % (Manual) Band Neuts % (Manual) Lymphocytes % (Manual) Monocytes % (Manual) Abs Neuts (Manual) Nucleated RBCs/100 WBC Differential Comment Platelet Estimate Platelet Morphology Target Cells Stomatocytes Puncture Site Patient Temperature O2 Saturation ABG pH ABG pCO2 ABG pO2 ABG HCO3 ABG O2 Content ABG Base Excess ABG Methemoglobin [place] Test Hemoglobin Carboxyhemoglobin O2 Delivery Device Liter Flow Critical Value Sodium Potassium Chloride Carbon Dioxide Anion Gap BUN Creatinine Estimated GFR POC Glucose 163 H 213 H Random Glucose Calcium Iron 9 L TIBC 504 H % Saturation 1.8 L Ferritin 10 Total Bilirubin AST ALT Alkaline Phosphatase Total Protein Albumin Vitamin B12 994 H Folate 10.6 05/31/18 05/31/18 05/31/18 16:26 17:14 21:17 WBC RBC Hgb Hct MCV MCH MCHC RDW Plt Count MPV Prelim Diff (Auto) Neut % (Auto) Lymph % (Auto) [place] % (Auto) Eos % (Auto) Baso % (Auto) Neut # (Auto) Lymph # (Auto) [place] # (Auto) Eos # (Auto) Baso # (Auto) WBC Differential Seg Neuts % (Manual) Band Neuts % (Manual) Lymphocytes % (Manual) Monocytes % (Manual) Abs Neuts (Manual) Nucleated RBCs/100 WBC Differential Comment Platelet Estimate Platelet Morphology Target Cells Stomatocytes Puncture Site Right radial Patient Temperature 98.6 O2 Saturation 91 ABG pH 7.30 L ABG pCO2 79 H* ABG pO2 71 ABG HCO3 38 H ABG O2 Content 11.2 L ABG Base Excess 11.2 H ABG Methemoglobin 1.3 [place] Test Present Hemoglobin 8.7 L Carboxyhemoglobin 2.2 O2 Delivery Device Nasal cannula Liter Flow 4.00 Critical Value Yes Sodium Potassium Chloride Carbon Dioxide Anion Gap BUN Creatinine Estimated GFR POC Glucose 170 H 164 H Random Glucose Calcium Iron TIBC % Saturation Ferritin Total Bilirubin AST ALT Alkaline Phosphatase Total Protein Albumin Vitamin B12 Folate 06/01/18 06/01/18 06/01/18 03:08 06:12 06:12 WBC 6.9 RBC 4.39 Hgb 9.0 L Hct 30.6 L MCV 69.7 L MCH 20.4 L MCHC 29.3 L RDW 23.3 H Plt Count 108 L MPV 8.6 Prelim Diff (Auto) Slide review pending Neut % (Auto) 88.2 H Lymph % (Auto) 4.0 L [place] % (Auto) 7.5 Eos % (Auto) 0.0 Baso % (Auto) 0.3 Neut # (Auto) 6.1 Lymph # (Auto) 0.3 L [place] # (Auto) 0.5 Eos # (Auto) 0.0 Baso # (Auto) 0.0 WBC Differential Manual diff final Seg Neuts % (Manual) 90 H Band Neuts % (Manual) 3 Lymphocytes % (Manual) 2 L Monocytes % (Manual) 5 Abs Neuts (Manual) 6.4 Nucleated RBCs/100 WBC 7 H Differential Comment . Platelet Estimate Low L Platelet Morphology Normal Target Cells 1+ H Stomatocytes 1+ H Puncture Site Patient Temperature O2 Saturation ABG pH ABG pCO2 ABG pO2 ABG HCO3 ABG O2 Content ABG Base Excess ABG Methemoglobin [place] Test Hemoglobin Carboxyhemoglobin O2 Delivery Device Liter Flow Critical Value Sodium 144 Potassium 4.6 Chloride 101 Carbon Dioxide 41.4 H Anion Gap 2 L BUN 22 H Creatinine 0.63 Estimated GFR Greater than 89 POC Glucose 182 H Random Glucose 143 H Calcium 8.1 L Iron TIBC % Saturation Ferritin Total Bilirubin 0.6 AST 50 H ALT 54 H Alkaline Phosphatase 169 H Total Protein 7.0 Albumin 2.9 L Vitamin B12 Folate Assessment and Plan - Plan Acute hypercapnic respiratory failure COPD exacerbation possible CHF exacerbation pCO2 in the 70s. Unknown baseline. -Chest x-ray with diffuse vascular prominence. BNP 443 -CTA chest negative for PE -echo with EF 60%/ no regional wall motion abnormalities and mild aortic stenosis -continue on IV steroids, gentle diuresis, antibiotic, duo nebs. Close monitoring in ICU. -pulmonary consult appreciated. Alcohol abuse/ withdrawal - continue on CIWA protocol Anemia; hypochromic, microcytic iron panel noted; occult blood pending. H/H stable; continue to monitor. History of stroke. Reportedly on Eliquis. continue aspirin. We will need to obtain home meds. Diabetes mellitus. Chronic. Glucose elevated 133. Will be on steroids. diabetic diet and insulin sliding scale. Monitor. elevated LFT's/ history of Cirrhosis- continue to monitor. will keep in ICU today. she has a warrant for elder abuse and officer is at bedside.
[2018-06-01] MEDS: Budesonide-Formoterol 160/4.5 MCG 6 GM Inhaler INH SCH ×2 (08:40→20:34)
[2018-06-01] MEDS: Multivitamin Inj 10 ML, Thiamine Inj 100 MG, Folic Acid Inj 1 MG in Sodium Chloride 0.4... IV.SIG SCH (09:10)
--- NOTE | 2018-06-01 09:47 | P.PN ---
Subjective Interval history: alert less sob Physical Exam Vital signs: Vital Signs 05/31/18 10:00 05/31/18 10:21 05/31/18 11:00 Temperature Pulse Rate 111 H 124 H 110 H Respiratory Rate 40 H 28 H 18 Blood Pressure 146/68 H 144/66 H Pulse Oximetry 92 L 96 05/31/18 11:23 05/31/18 12:00 05/31/18 13:00 Temperature 98.6 F Pulse Rate 106 H 109 H 104 H Respiratory Rate 22 24 13 Blood Pressure 145/70 H 155/71 H Pulse Oximetry 97 100 05/31/18 14:00 05/31/18 14:01 05/31/18 15:00 Temperature Pulse Rate 115 H 115 H 114 H Respiratory Rate 23 26 H 22 Blood Pressure 173/77 H 173/77 H 159/73 H Pulse Oximetry 94 L 05/31/18 15:55 05/31/18 16:00 05/31/18 17:00 Temperature 98.6 F Pulse Rate 107 H 108 H 111 H Respiratory Rate 20 28 H 37 H Blood Pressure 142/71 H 143/63 H Pulse Oximetry 100 94 L 05/31/18 18:00 05/31/18 19:00 05/31/18 20:00 Temperature 98.1 F Pulse Rate 115 H 109 H 106 H Respiratory Rate 24 15 13 Blood Pressure 126/56 L 114/57 L 107/57 L Pulse Oximetry 96 95 98 05/31/18 20:11 05/31/18 20:12 05/31/18 21:00 Temperature Pulse Rate 108 H 110 H Respiratory Rate 14 13 Blood Pressure 112/58 L Pulse Oximetry 97 96 05/31/18 22:00 05/31/18 23:00 05/31/18 23:17 Temperature Pulse Rate 112 H 109 H 109 H Respiratory Rate 26 H 25 H 18 Blood Pressure 110/58 L 118/66 Pulse Oximetry 94 L 95 06/01/18 00:00 06/01/18 01:00 06/01/18 02:00 Temperature Pulse Rate 109 H 109 H 103 H Respiratory Rate 24 13 17 Blood Pressure 126/68 136/73 122/62 Pulse Oximetry 98 97 95 06/01/18 03:00 06/01/18 04:00 06/01/18 04:31 Temperature 98.8 F Pulse Rate 107 H 101 H 101 H Respiratory Rate 19 12 30 H Blood Pressure 151/74 H 119/57 L Pulse Oximetry 95 96 06/01/18 05:00 06/01/18 06:00 06/01/18 08:00 Temperature 97.9 F Pulse Rate 101 H 111 H 102 H Respiratory Rate 11 L 26 H 26 H Blood Pressure 116/60 144/73 H 129/62 Pulse Oximetry 95 91 L 93 L 06/01/18 08:04 Temperature Pulse Rate 100 H Respiratory Rate 30 H Blood Pressure Pulse Oximetry 96 Intake & Output 05/31/18 06/01/18 06/01/18 18:59 06:59 18:59 Intake Total 1531.2 / 1531.2 730 / 730 Output Total 700 / 700 Balance 831.2 / 831.2 730 / 730 Weight 93.6 kg Intake: IV 511.2 / 511.2 250 / 250 Azithromycin Inj 500 MG In NS 250 / 250 Inj 250 ML @ 250 mls/hr IV.SIG Q24H [facility] Rx#:[id number] MVI-12 Inj 10 ML Thiamine Inj 511.2 / 511.2 100 MG Folvite Inj 1 MG In 1/2 Normal Saline Inj 500 ML @ 127. 8 mls/hr IV.SIG Q24H [facility] Rx#: [id number] Oral 1020 / 1020 480 / 480 Output: Urine 700 / 700 Other: # Voids 3 Date of Last Bowel Movement 05/29/18 05/29/18 # Bowel Movements 0 Narrative: GENERAL: Patient sitting up in bed. Appears comfortable. Alert and oriented x3. She does have mildly dysarthric speech. SKIN: Warm and dry. HEAD: Atraumatic. Normocephalic. EYES: Pupils unreactive, left pupil clouded. Patient reports this is at baseline, has had bilateral eye surgery. No scleral icterus. No injection or drainage. ENT: No nasal bleeding or discharge. Mucous membranes pink and moist. NECK: Trachea midline. No JVD. CARDIOVASCULAR: Regular rate and rhythm. RESPIRATORY: No accessory muscle use. Clear to auscultation. Breath sounds equal bilaterally. Diminished breath sounds secondary to body habitus. GASTROINTESTINAL: Abdomen soft, non-tender, nondistended. Hepatic and splenic margins not palpable. MUSCULOSKELETAL: Extremities without clubbing, cyanosis. Trace bilateral lower extremity edema.. No obvious deformities. NEUROLOGICAL: Awake and alert. No obvious cranial nerve deficits. Motor grossly within normal limits. Five out of 5 muscle strength in the arms and legs. PSYCHIATRIC: Appropriate mood and affect; insight and judgment normal. Results - Labs CBC & Chem 7: 06/01/18 06:12 06/01/18 06:12 Laboratory Results - last 24 hr 05/31/18 05/31/18 05/31/18 04:59 12:03 16:26 WBC RBC Hgb Hct MCV MCH MCHC RDW Plt Count MPV Prelim Diff (Auto) Neut % (Auto) Lymph % (Auto) [place] % (Auto) Eos % (Auto) Baso % (Auto) Neut # (Auto) Lymph # (Auto) [place] # (Auto) Eos # (Auto) Baso # (Auto) WBC Differential Seg Neuts % (Manual) Band Neuts % (Manual) Lymphocytes % (Manual) Monocytes % (Manual) Abs Neuts (Manual) Nucleated RBCs/100 WBC Differential Comment Platelet Estimate Platelet Morphology Target Cells Stomatocytes Puncture Site Patient Temperature O2 Saturation ABG pH ABG pCO2 ABG pO2 ABG HCO3 ABG O2 Content ABG Base Excess ABG Methemoglobin [place] Test Hemoglobin Carboxyhemoglobin O2 Delivery Device Liter Flow Critical Value Sodium Potassium Chloride Carbon Dioxide Anion Gap BUN Creatinine Estimated GFR POC Glucose 213 H 170 H Random Glucose Calcium TIBC 504 H % Saturation 1.8 L Ferritin 10 Total Bilirubin AST ALT Alkaline Phosphatase Total Protein Albumin Vitamin B12 994 H Folate 10.6 05/31/18 05/31/18 06/01/18 17:14 21:17 03:08 WBC RBC Hgb Hct MCV MCH MCHC RDW Plt Count MPV Prelim Diff (Auto) Neut % (Auto) Lymph % (Auto) [place] % (Auto) Eos % (Auto) Baso % (Auto) Neut # (Auto) Lymph # (Auto) [place] # (Auto) Eos # (Auto) Baso # (Auto) WBC Differential Seg Neuts % (Manual) Band Neuts % (Manual) Lymphocytes % (Manual) Monocytes % (Manual) Abs Neuts (Manual) Nucleated RBCs/100 WBC Differential Comment Platelet Estimate Platelet Morphology Target Cells Stomatocytes Puncture Site Right radial Patient Temperature 98.6 O2 Saturation 91 ABG pH 7.30 L ABG pCO2 79 H* ABG pO2 71 ABG HCO3 38 H ABG O2 Content 11.2 L ABG Base Excess 11.2 H ABG Methemoglobin 1.3 [place] Test Present Hemoglobin 8.7 L Carboxyhemoglobin 2.2 O2 Delivery Device Nasal cannula Liter Flow 4.00 Critical Value Yes Sodium Potassium Chloride Carbon Dioxide Anion Gap BUN Creatinine Estimated GFR POC Glucose 164 H 182 H Random Glucose Calcium TIBC % Saturation Ferritin Total Bilirubin AST ALT Alkaline Phosphatase Total Protein Albumin Vitamin B12 Folate 06/01/18 06/01/18 06/01/18 06:12 06:12 08:08 WBC 6.9 RBC 4.39 Hgb 9.0 L Hct 30.6 L MCV 69.7 L MCH 20.4 L MCHC 29.3 L RDW 23.3 H Plt Count 108 L MPV 8.6 Prelim Diff (Auto) Slide review pending Neut % (Auto) 88.2 H Lymph % (Auto) 4.0 L [place] % (Auto) 7.5 Eos % (Auto) 0.0 Baso % (Auto) 0.3 Neut # (Auto) 6.1 Lymph # (Auto) 0.3 L [place] # (Auto) 0.5 Eos # (Auto) 0.0 Baso # (Auto) 0.0 WBC Differential Manual diff final Seg Neuts % (Manual) 90 H Band Neuts % (Manual) 3 Lymphocytes % (Manual) 2 L Monocytes % (Manual) 5 Abs Neuts (Manual) 6.4 Nucleated RBCs/100 WBC 7 H Differential Comment . Platelet Estimate Low L Platelet Morphology Normal Target Cells 1+ H Stomatocytes 1+ H Puncture Site Patient Temperature O2 Saturation ABG pH ABG pCO2 ABG pO2 ABG HCO3 ABG O2 Content ABG Base Excess ABG Methemoglobin [place] Test Hemoglobin Carboxyhemoglobin O2 Delivery Device Liter Flow Critical Value Sodium 144 Potassium 4.6 Chloride 101 Carbon Dioxide 41.4 H Anion Gap 2 L BUN 22 H Creatinine 0.63 Estimated GFR Greater than 89 POC Glucose 159 H Random Glucose 143 H Calcium 8.1 L TIBC % Saturation Ferritin Total Bilirubin 0.6 AST 50 H ALT 54 H Alkaline Phosphatase 169 H Total Protein 7.0 Albumin 2.9 L Vitamin B12 Folate Assessment and Plan - Plan COPD RESPIRATORY FAILURE H/O CVA PLAN O2 NEEDED BRONCHODILATOR THERAPY INCREASE ACTIVITY
--- NOTE | 2018-06-01 16:05 | ECG ---
Date Performed: 05/31/2018 Time Performed: 10:00:21 PTAGE: 57 years EKG: SINUS TACHYCARDIA Since previous tracing, no significant change noted ABNORMAL RHYTHM ECG PREVIOUS TRACING : 05/30/2018 16.48 DOCTOR: Gregg Dorman Interpretating Date/Time 06/01/2018 16:04:53
[2018-06-01] MEDS: Azithromycin Inj 500 MG in Sodium Chlor 0.9% Inj 250 ML IV.SIG SCH (20:34)
[2018-06-02] MEDS: MethylPREDNISolone Sod Succinate Inj 125 MG/2 ML Vial IM SCH ×3 (01:34→19:50)
[2018-06-02] MEDS: Insulin NovoLOG Aspart Correctional Sugar Inj SQ SCH ×5 (03:25→20:33)
[2018-06-02] MEDS: Chlorhexidine Gluconate 2% 1 Pack (2 Cloths) TOPICAL SCH (04:28)
[2018-06-02 05:51] LABS: Hematocrit 29.2 % (35.0-46.0); Hemoglobin 8.7 gm/dL (11.6-15.3)
[2018-06-02 06:14] LABS: Calcium 8.3 mg/dL (8.5-10.1); Carbon Dioxide 41.1 meq/L (21.0-32.0); Potassium 4.2 meq/L (3.5-5.1)
--- NOTE | 2018-06-02 07:49 | P.PNIM ---
Subjective Interval history: f/u; respiratory failure with mild to moderate respiratory distress. with occasional cough. no fever. d/w the RN and no acute issues over night. Physical Exam Vital signs: Vital Signs 06/01/18 08:00 06/01/18 08:04 06/01/18 09:00 Temperature 97.9 F Pulse Rate 102 H 100 H 111 H Respiratory Rate 26 H 30 H 48 H Blood Pressure 129/62 Pulse Oximetry 93 L 96 86 L 06/01/18 09:01 06/01/18 10:00 06/01/18 10:01 Temperature Pulse Rate 117 H 113 H 114 H Respiratory Rate 38 H 53 H 26 H Blood Pressure 135/81 115/56 L Pulse Oximetry 91 L 86 L 88 L 06/01/18 11:00 06/01/18 12:00 06/01/18 12:07 Temperature 97.9 F Pulse Rate 107 H 107 H 108 H Respiratory Rate 22 24 21 Blood Pressure 140/69 140/70 Pulse Oximetry 89 L 91 L 06/01/18 13:00 06/01/18 14:00 06/01/18 15:00 Temperature Pulse Rate 120 H 116 H 110 H Respiratory Rate 52 H 23 19 Blood Pressure 131/73 126/59 L 152/72 H Pulse Oximetry 89 L 90 L 91 L 06/01/18 15:44 06/01/18 16:00 06/01/18 17:00 Temperature 98.5 F Pulse Rate 109 H 115 H 114 H Respiratory Rate 22 30 H 27 H Blood Pressure 151/70 H 150/70 H Pulse Oximetry 90 L 88 L 06/01/18 18:00 06/01/18 19:00 06/01/18 20:00 Temperature 97.7 F Pulse Rate 120 H 116 H 115 H Respiratory Rate 30 H 25 H 27 H Blood Pressure 137/72 128/58 L 132/69 Pulse Oximetry 89 L 90 L 95 06/01/18 20:42 06/01/18 20:43 06/01/18 21:00 Temperature Pulse Rate 112 H 119 H Respiratory Rate 19 23 Blood Pressure 139/69 Pulse Oximetry 95 94 L 06/01/18 22:00 06/01/18 23:00 06/01/18 23:09 Temperature Pulse Rate 115 H 112 H 112 H Respiratory Rate 27 H 36 H 18 Blood Pressure 121/59 L Pulse Oximetry 93 L 93 L 06/02/18 00:00 06/02/18 00:01 06/02/18 00:33 Temperature Pulse Rate 109 H 112 H 111 H Respiratory Rate 27 H 25 H 19 Blood Pressure 156/74 H Pulse Oximetry 94 L 98 06/02/18 01:00 06/02/18 02:00 06/02/18 03:00 Temperature Pulse Rate 114 H 110 H 103 H Respiratory Rate 22 16 15 Blood Pressure 133/61 145/66 H Pulse Oximetry 95 97 97 06/02/18 03:10 06/02/18 03:16 06/02/18 04:00 Temperature Pulse Rate 104 H 106 H 109 H Respiratory Rate 16 26 H 26 H Blood Pressure 155/74 H 144/79 H 160/82 H Pulse Oximetry 95 95 96 Intake & Output 06/01/18 06/02/18 06/02/18 18:59 06:59 18:59 Intake Total 1231.2 / 1231.2 750 / 750 Output Total 600 / 600 Balance 1231.2 / 1231.2 150 / 150 Weight 93.4 kg Intake: IV 511.2 / 511.2 0 / 0 Azithromycin Inj 500 MG In NS 0 / 0 Inj 250 ML @ 250 mls/hr IV.SIG Q24H [facility] Rx#:[id number] MVI-12 Inj 10 ML Thiamine Inj 511.2 / 511.2 100 MG Folvite Inj 1 MG In 1/2 Normal Saline Inj 500 ML @ 127. 8 mls/hr IV.SIG Q24H [facility] Rx#: [id number] Oral 720 / 720 750 / 750 Output: Urine 600 / 600 Other: # Voids 4 2 # Incontinent Voids 1 Date of Last Bowel Movement 05/29/18 06/02/18 # Bowel Movements 0 1 - Constitutional moderate distress - Routine Respiratory Exam Present: prolonged expiratory phase, wheezes - Routine Cardiovascular Exam Present: RRR, tachycardia - Routine Abdominal Exam Present: soft - Routine Extremities Exam Comments: no pedal edema. - Routine Neurological Exam Present: alert, oriented X3 Results - Labs CBC & Chem 7: 06/02/18 04:13 06/02/18 04:13 Laboratory Results - last 24 hr 06/01/18 06/01/18 06/01/18 08:08 12:14 17:08 Hgb Hct Sodium Potassium Chloride Carbon Dioxide Anion Gap BUN Creatinine Estimated GFR POC Glucose 159 H 205 H 143 H Random Glucose Calcium 06/01/18 06/02/18 06/02/18 20:29 03:22 04:13 Hgb 8.7 L Hct 29.2 L Sodium Potassium Chloride Carbon Dioxide Anion Gap BUN Creatinine Estimated GFR POC Glucose 191 H 201 H Random Glucose Calcium 06/02/18 04:13 Hgb Hct Sodium 144 Potassium 4.2 Chloride 100 Carbon Dioxide 41.1 H Anion Gap 3 L BUN 28 H Creatinine 0.71 Estimated GFR 85 L POC Glucose Random Glucose 177 H Calcium 8.3 L Assessment and Plan - Plan Acute hypercapnic respiratory failure COPD exacerbation possible CHF exacerbation pCO2 in the 70s. Unknown baseline. -Chest x-ray with diffuse vascular prominence. BNP 443 -CTA chest negative for PE -echo with EF 60%/ no regional wall motion abnormalities and mild aortic stenosis -continue on IV steroids, gentle diuresis, antibiotic, duo nebs. Close monitoring in ICU. -pulmonary consult appreciated. Alcohol abuse/ withdrawal - continue on CIWA protocol Anemia; hypochromic, microcytic iron panel noted; occult blood pending. continue to monitor H/H. will consult GI. History of stroke. Reportedly on Eliquis. hold aspirin for now due to anemia. Diabetes mellitus. Chronic. Glucose elevated 133. Will be on steroids. diabetic diet and insulin sliding scale. Monitor. elevated LFT's/ history of Cirrhosis- continue to monitor. continue to monitor in ICU. she has a warrant for elder abuse and officer is at bedside. d/w the RN.
[2018-06-02] MEDS: Budesonide-Formoterol 160/4.5 MCG 6 GM Inhaler INH SCH ×2 (11:16→20:34)
[2018-06-02] MEDS: Multivitamin Inj 10 ML, Thiamine Inj 100 MG, Folic Acid Inj 1 MG in Sodium Chloride 0.4... IV.SIG SCH (11:17)
[2018-06-02] MEDS: Pantoprazole Inj 40 MG Vial IV.PUSH SCH (13:22)
--- NOTE | 2018-06-02 17:01 | P.PN ---
Subjective Interval history: ALERT LESS SOB Physical Exam Vital signs: Vital Signs 06/01/18 18:00 06/01/18 19:00 06/01/18 20:00 Temperature 97.7 F Pulse Rate 120 H 116 H 115 H Respiratory Rate 30 H 25 H 27 H Blood Pressure 137/72 128/58 L 132/69 Pulse Oximetry 89 L 90 L 95 06/01/18 20:42 06/01/18 20:43 06/01/18 21:00 Temperature Pulse Rate 112 H 119 H Respiratory Rate 19 23 Blood Pressure 139/69 Pulse Oximetry 95 94 L 06/01/18 22:00 06/01/18 23:00 06/01/18 23:09 Temperature Pulse Rate 115 H 112 H 112 H Respiratory Rate 27 H 36 H 18 Blood Pressure 121/59 L Pulse Oximetry 93 L 93 L 06/02/18 00:00 06/02/18 00:01 06/02/18 00:33 Temperature Pulse Rate 109 H 112 H 111 H Respiratory Rate 27 H 25 H 19 Blood Pressure 156/74 H Pulse Oximetry 94 L 98 06/02/18 01:00 06/02/18 02:00 06/02/18 03:00 Temperature Pulse Rate 114 H 110 H 103 H Respiratory Rate 22 16 15 Blood Pressure 133/61 145/66 H Pulse Oximetry 95 97 97 06/02/18 03:10 06/02/18 03:16 06/02/18 04:00 Temperature Pulse Rate 104 H 106 H 109 H Respiratory Rate 16 26 H 26 H Blood Pressure 155/74 H 144/79 H 160/82 H Pulse Oximetry 95 95 96 06/02/18 07:00 06/02/18 08:00 06/02/18 09:00 Temperature Pulse Rate 101 H 114 H Respiratory Rate 18 Blood Pressure Pulse Oximetry 96 06/02/18 12:00 06/02/18 15:00 Temperature 98.5 F Pulse Rate 112 H 104 H Respiratory Rate 14 20 Blood Pressure 118/95 H Pulse Oximetry Intake & Output 06/01/18 06/02/18 06/02/18 18:59 06:59 18:59 Intake Total 1231.2 / 1231.2 750 / 750 Output Total 600 / 600 Balance 1231.2 / 1231.2 150 / 150 Weight 93.4 kg Intake: IV 511.2 / 511.2 0 / 0 Azithromycin Inj 500 MG In NS 0 / 0 Inj 250 ML @ 250 mls/hr IV.SIG Q24H [facility] Rx#:[id number] MVI-12 Inj 10 ML Thiamine Inj 511.2 / 511.2 100 MG Folvite Inj 1 MG In 1/2 Normal Saline Inj 500 ML @ 127. 8 mls/hr IV.SIG Q24H [facility] Rx#: [id number] Oral 720 / 720 750 / 750 Output: Urine 600 / 600 Other: # Voids 4 2 # Incontinent Voids 1 Date of Last Bowel Movement 05/29/18 06/02/18 05/29/18 # Bowel Movements 0 1 Narrative: GENERAL: Patient sitting up in bed. Appears comfortable. Alert and oriented x3. She does have mildly dysarthric speech. SKIN: Warm and dry. HEAD: Atraumatic. Normocephalic. EYES: Pupils unreactive, left pupil clouded. Patient reports this is at baseline, has had bilateral eye surgery. No scleral icterus. No injection or drainage. ENT: No nasal bleeding or discharge. Mucous membranes pink and moist. NECK: Trachea midline. No JVD. CARDIOVASCULAR: Regular rate and rhythm. RESPIRATORY: No accessory muscle use. Clear to auscultation. Breath sounds equal bilaterally. Diminished breath sounds secondary to body habitus. GASTROINTESTINAL: Abdomen soft, non-tender, nondistended. Hepatic and splenic margins not palpable. MUSCULOSKELETAL: Extremities without clubbing, cyanosis. Trace bilateral lower extremity edema.. No obvious deformities. NEUROLOGICAL: Awake and alert. No obvious cranial nerve deficits. Motor grossly within normal limits. Five out of 5 muscle strength in the arms and legs. PSYCHIATRIC: Appropriate mood and affect; insight and judgment normal. Results - Labs CBC & Chem 7: 06/02/18 04:13 06/02/18 04:13 Laboratory Results - last 24 hr 06/01/18 06/01/18 06/02/18 17:08 20:29 03:22 Hgb Hct Sodium Potassium Chloride Carbon Dioxide Anion Gap BUN Creatinine Estimated GFR POC Glucose 143 H 191 H 201 H Random Glucose Calcium Lipase 06/02/18 06/02/18 06/02/18 04:13 04:13 04:13 Hgb 8.7 L Hct 29.2 L Sodium 144 Potassium 4.2 Chloride 100 Carbon Dioxide 41.1 H Anion Gap 3 L BUN 28 H Creatinine 0.71 Estimated GFR 85 L POC Glucose Random Glucose 177 H Calcium 8.3 L Lipase 162 06/02/18 11:42 Hgb Hct Sodium Potassium Chloride Carbon Dioxide Anion Gap BUN Creatinine Estimated GFR POC Glucose 177 H Random Glucose Calcium Lipase Assessment and Plan - Plan COPD RESPIRATORY FAILURE H/O CVA PLAN O2 NEEDED BRONCHODILATOR THERAPY INCREASE ACTIVITY
--- NOTE | 2018-06-02 17:32 | P.CONGI ---
History of Present Illness Consult date: 06/02/18 Consult reason: Left upper quadrant abdominal pain, iron deficiency anemia Dyspepsia Chief complaint: CHF Exacerbation, COPD Exacerbation, Hypoxia History of Present Illness: This is an obese 57-year-old female who was in her usual state of health up until 05/30/2018 when she was brought to the hospital for COPD, shortness of breath, and possible respiratory failure. Patient has a history of CVA and is been on Eliquis which is currently on hold. Patient is now complaining of left upper quadrant radiating over to the right upper quadrant abdominal pain worsening after eating over the past 2 months. Aggregating factors could be related to patient's hepatitis C diagnosed approximately 40 years ago without any treatment regimen versus constipation versus cirrhosis with also a history of daily alcohol consumption up until the past week. Current labs reviewed which show hemoglobin 8.7 PT/INR 1.3. Patient is very hard of hearing. Patient notes that she is been in [place] up until approximately 1 year ago when she was diagnosed with the cirrhosis. Patient notes that she has had labs drawn in the past but is a poor historian. Patient denies any family history of colon cancer. She does note previous EGD colonoscopy several years ago but unknown timing and findings. Patient also notes uncontrolled symptoms of nausea and reflux and states that she has been on Protonix daily up until approximately a week ago but symptoms have continued for several months to be uncontrolled with dyspepsia, reflux, but no dysphasia. Gastroenterology has been consulted to assist in her care. Note patient is restrained with regards, was arrested approximately 1 week ago when she started having shortness of breath and COPD exacerbation possible respiratory failure Review of Systems All other systems reviewed negative except as stated in HPI PMFSH - History History Provided By: Patient - Medical History Medical History: Medical History (Last Updated 05/31/18 @ 07:21 by Nita Condon) COPD (chronic obstructive pulmonary disease) Cataract Cirrhosis MDRO (multiple drug resistant organisms) resistance Onset Date: ~05/30/18 - Family History Family History: Family History (Last Updated 05/31/18 @ 01:48 by Tay Shore MD) Other Family history non-contributory - Tobacco History Second Hand Smoke Exposure: No Smoking Status: Former smoker - Alcohol History How Often Do You Have a Drink Containing Alcohol: Never - Substance Use History Substance History: No History of Abuse - Travel History Recent Travel in the [place] Within the Last 8 Weeks: No Recent Travel Out of the Country Within the Last 8 Weeks: No - Immunization History Tetanus Immunization: Unsure Medications and Allergies Active Medications: Active Medications Acetaminophen (Tylenol) 650 mg PO Q4H PRN PRN Reason: fever/pain Al Hydroxide/Mg Hydroxide (Milk Of Isabela Liq) 30 ml PO Q12H PRN PRN Reason: Mild Constipation Albuterol (Duoneb Neb (Patsy)) 1 ampul NEB Q4HR NEB [facility] Last Admin: 06/02/18 15:38 Dose: Not Given Albuterol (Albuterol Neb (Prn)) 1.25 mg NEB Q2HR NEB PRN PRN Reason: sob Last Admin: 05/31/18 10:20 Dose: 1.25 mg Aspirin (Ecotrin) 81 mg PO DAILY [facility] Last Admin: 06/01/18 08:40 Dose: 81 mg Bisacodyl (Dulcolax Supp) 10 mg RECTAL DAILY PRN PRN Reason: SEVERE CONSITIPATION Bisacodyl (Dulcolax Ec) 20 mg PO ONCE ONE Stop: 06/03/18 16:01 Budesonide/Formoterol Fumarate (Symbicort 160/4.5 Mcg Inh) 2 puff INH BID [facility] Last Admin: 06/02/18 11:16 Dose: 2 puff Chlorhexidine Gluconate (Chlorhexidine 2% Cloth) 3 pack TOPICAL DAILY@0400 [facility] Stop: 06/05/18 03:59 Last Admin: 06/02/18 04:28 Dose: 3 pack Chlorhexidine Gluconate (Chlorhexidine 2% Cloth) 3 pack TOPICAL DAILY@0400 PRN PRN Reason: Extra cloth needed Stop: 06/05/18 03:59 Dextrose (D50w Vial) 50 ml IV.PUSH UNSCH PRN PRN Reason: PER HYPOGLYCEMIA PROTOCOL Flumazenil (Romazecon Inj) 0.2 mg IV.PUSH Q1M PRN PRN Reason: OVERSEDATION Furosemide (Lasix Inj) 20 mg IV.PUSH DAILY [facility] Last Admin: 06/02/18 11:16 Dose: 20 mg Glucagon (Glucagon Inj) 1 mg OTHER PRN PRN PRN Reason: for Hypoglycemia Protocol Haloperidol Lactate (Haldol Inj) 1 mg IV.PUSH Q15M PRN PRN Reason: for severe agitation Azithromycin 500 mg/ Sodium (Chloride) 250 mls @ 250 mls/hr IV.SIG Q24H [facility] Last Infusion: 06/01/18 23:14 Dose: 0 mls/hr Multivitamins 10 ml/ Thiamine HCl 100 mg/ Folic Acid 1 mg/Sodium Chloride 511.2 mls @ 127.8 mls/hr IV.SIG Q24H [facility] Last Admin: 06/02/18 11:17 Dose: 127.8 mls/hr Insulin Aspart (Novolog Insulin Correctional Sugar Inj) 0 unit SQ ACHS AND 3AM [facility]; Protocol Last Admin: 06/02/18 13:21 Dose: Not Given Lactulose (Lactulose Liq) 30 ml PO DAILY PRN PRN Reason: SEVERE CONSITIPATION Lorazepam (Ativan) 1 mg PO Q4H PRN PRN Reason: for CIWA 8-10 Lorazepam (Ativan Inj) 2 mg IV.PUSH Q2H PRN PRN Reason: for CIWA 11-14 Lorazepam (Ativan Inj) 2 mg IV.PUSH Q1H PRN PRN Reason: for CIWA 15-20 Lorazepam (Ativan Inj) 2 mg IV.PUSH Q15M PRN PRN Reason: for CIWA > 20 Lorazepam (Ativan Inj) 1 mg IV.PUSH Q4H PRN PRN Reason: for CIWA 8-10 Lorazepam (Ativan) 2 mg PO Q2H PRN PRN Reason: for CIWA 11-14 Magnesium Citrate (Citroma Liq) 300 ml PO ONCE ONE Stop: 06/03/18 16:01 Magnesium Citrate (Citroma Liq) 300 ml PO ONCE ONE Stop: 06/03/18 17:01 Methylprednisolone Sodium Succinate (Solumedrol Inj) 60 mg IV.PUSH Q6HR PATSY Morphine Sulfate (Morphine Inj) 2 mg IV.PUSH Q4H PRN PRN Reason: PAIN SCALE 1-10 Nicotine (Habitrol 21 Mg Patch.24 Hr) 1 patch T-DERMAL DAILY [facility] Last Admin: 06/02/18 11:16 Dose: 1 patch Pantoprazole Sodium (Protonix Inj) 40 mg IV.PUSH Q24H [facility] Last Admin: 06/02/18 13:22 Dose: 40 mg Sennosides (Senokot) 17.2 mg PO Q12H PRN PRN Reason: Moderate Constipation Sodium Chloride (Ns Flush) 2 ml IV.FLUSH BID [facility] Last Admin: 06/02/18 11:16 Dose: 2 ml Sodium Chloride (Ns Flush) 2 ml IV.FLUSH PRN PRN PRN Reason: FLUSH AFTER USING IV ACCESS Allergies Allergy/AdvReac Type Severity Reaction Status Date / Time hydrocodone Allergy Mild Hives Verified 05/30/18 16:34 oxycodone Allergy Mild Hives Verified 05/30/18 16:34 Home Medications Medication Instructions Recorded Confirmed Type Unable to Obtain Home Meds 05/30/18 05/30/18 History Exam Vital signs: Vital Signs 06/01/18 18:00 06/01/18 19:00 06/01/18 20:00 Temperature 97.7 F Pulse Rate 120 H 116 H 115 H Respiratory Rate 30 H 25 H 27 H Blood Pressure 137/72 128/58 L 132/69 Pulse Oximetry 89 L 90 L 95 06/01/18 20:42 06/01/18 20:43 06/01/18 21:00 Temperature Pulse Rate 112 H 119 H Respiratory Rate 19 23 Blood Pressure 139/69 Pulse Oximetry 95 94 L 06/01/18 22:00 06/01/18 23:00 06/01/18 23:09 Temperature Pulse Rate 115 H 112 H 112 H Respiratory Rate 27 H 36 H 18 Blood Pressure 121/59 L Pulse Oximetry 93 L 93 L 06/02/18 00:00 06/02/18 00:01 06/02/18 00:33 Temperature Pulse Rate 109 H 112 H 111 H Respiratory Rate 27 H 25 H 19 Blood Pressure 156/74 H Pulse Oximetry 94 L 98 06/02/18 01:00 06/02/18 02:00 06/02/18 03:00 Temperature Pulse Rate 114 H 110 H 103 H Respiratory Rate 22 16 15 Blood Pressure 133/61 145/66 H Pulse Oximetry 95 97 97 06/02/18 03:10 06/02/18 03:16 06/02/18 04:00 Temperature Pulse Rate 104 H 106 H 109 H Respiratory Rate 16 26 H 26 H Blood Pressure 155/74 H 144/79 H 160/82 H Pulse Oximetry 95 95 96 06/02/18 07:00 06/02/18 08:00 06/02/18 09:00 Temperature Pulse Rate 101 H 114 H Respiratory Rate 18 Blood Pressure Pulse Oximetry 96 06/02/18 12:00 06/02/18 15:00 Temperature 98.5 F Pulse Rate 112 H 104 H Respiratory Rate 14 20 Blood Pressure 118/95 H Pulse Oximetry Intake & Output 06/01/18 06/02/18 06/02/18 18:59 06:59 18:59 Intake Total 1231.2 / 1231.2 750 / 750 Output Total 600 / 600 Balance 1231.2 / 1231.2 150 / 150 Weight 93.4 kg Intake: IV 511.2 / 511.2 0 / 0 Azithromycin Inj 500 MG In NS 0 / 0 Inj 250 ML @ 250 mls/hr IV.SIG Q24H [facility] Rx#:[id number] MVI-12 Inj 10 ML Thiamine Inj 511.2 / 511.2 100 MG Folvite Inj 1 MG In 1/2 Normal Saline Inj 500 ML @ 127. 8 mls/hr IV.SIG Q24H [facility] Rx#: [id number] Oral 720 / 720 750 / 750 Output: Urine 600 / 600 Other: # Voids 4 2 # Incontinent Voids 1 Date of Last Bowel Movement 05/29/18 06/02/18 05/29/18 # Bowel Movements 0 1 - Constitutional moderate distress, obese, disheveled, cooperative - Routine HEENT Exam Head: Present: normocephalic (Hard of hearing) ENT: Present: mucous membranes moist - Routine Respiratory Exam Present: accessory muscle use (O2 per 2 L mild occasional expiratory wheeze noted, no obvious shortness of breath at rest) - Routine Cardiovascular Exam Present: S1, S2 - Routine Abdominal Exam Present: soft (taut, round, mild distention noted), normoactive bowel sounds ( Left upper quadrant abdominal discomfort radiating over to the mid and right upper quadrant), distended - Routine Skin Exam Present: intact (Mild scratches noted on abdomen and on extremities,), pallor Results - Labs CBC & Chem 7: 06/02/18 04:13 06/02/18 04:13 Labs: Laboratory Results - last 24 hr 06/01/18 06/02/18 06/02/18 20:29 03:22 04:13 Hgb 8.7 L Hct 29.2 L Sodium Potassium Chloride Carbon Dioxide Anion Gap BUN Creatinine Estimated GFR POC Glucose 191 H 201 H Random Glucose Calcium Lipase 06/02/18 06/02/18 06/02/18 04:13 04:13 11:42 Hgb Hct Sodium 144 Potassium 4.2 Chloride 100 Carbon Dioxide 41.1 H Anion Gap 3 L BUN 28 H Creatinine 0.71 Estimated GFR 85 L POC Glucose 177 H Random Glucose 177 H Calcium 8.3 L Lipase 162 Assessment and Plan - Plan obese 57-year-old female who was in her usual state of health up until 2017 when she was brought to the hospital for COPD, shortness of breath, and possible respiratory failure. Patient has a history of CVA and is been on Eliquis which is currently on hold. Patient is now complaining of left upper quadrant radiating over to the right upper quadrant abdominal pain worsening after eating over the past 2 months. Aggregating factors could be related to patient's hepatitis C diagnosed approximately 40 years ago without any treatment regimen versus constipation versus cirrhosis with also a history of daily alcohol consumption up until the past week. Current labs reviewed which show hemoglobin 8.7 PT/INR 1.3. Patient is very hard of hearing. Patient notes that she is been in [place] up until approximately 1 year ago when she was diagnosed with the cirrhosis. Patient notes that she has had labs drawn in the past but is a poor historian. Patient denies any family history of colon cancer. She does note previous EGD colonoscopy several years ago but unknown timing and findings. Patient also notes uncontrolled symptoms of nausea and reflux and states that she has been on Protonix daily up until approximately a week ago but symptoms have continued for several months to be uncontrolled with dyspepsia, reflux, but no dysphasia. Gastroenterology has been consulted to assist in her care. Note patient is restrained with regards, was arrested approximately 1 week ago when she started having shortness of breath and COPD exacerbation possible respiratory failure. Patient was seen per pulmonary medicine, who states she is stable for EGD and colonoscopy Monday Dyspepsia, also has symptoms of nausea and reflux GERD, has been on Protonix up until approximately 1 week ago but states that her dyspepsia symptoms have worsened over the past few months Left upper quadrant pain radiating into the mid and right upper quadrant, history of hepatitis C with cirrhosis and no previous treatment regimen. Was in [place] approximately 1 year ago when diagnosis occurred History of CVA was on Eliquis currently be inhaled Anemia probably related to chronic disease Plan Diet diabetic CT of the abdomen and pelvis with IV contrast this p.m. Consent for EGD and colonoscopy Monday a.m. N.p.o. at midnight Monday night Clear liquid diet starting 06/03/2018 Mag citrate and Dulcolax tabs prep starting 11:11 PM Continue to hold any anticoagulation PPI twice daily Bowel regimen as needed Monitor labs Supportive care Further recommendations to follow Patient was seen per myself and Dr. Harris, note was written on his behalf
[2018-06-02] MEDS: MethylPREDNISolone Sod Succinate Inj 125 MG/2 ML Vial IV.PUSH SCH ×2 (18:25→23:51)
[2018-06-02] MEDS: Azithromycin Inj 500 MG in Sodium Chlor 0.9% Inj 250 ML IV.SIG SCH (20:32)
--- NOTE | 2018-06-03 01:18 | CT ---
EXAM DATE: 06/03/2018 12:55 AM EST AGE/SEX: 57 years / Female INDICATIONS: Left upper quadrant pain. CLINICAL DATA: This is the patient's initial encounter. Patient reports that signs and symptoms have been present for 1 day and indicates a pain score of 6/10. MEDICAL/SURGICAL HISTORY: Chronic obstructive pulmonary disease. Cirrhosis. None. ORAL CONTRAST: No oral contrast ingested. RADIATION DOSE: 16.25 CTDI (mGy) COMPARISON: [facility], CT ABDOMEN & PELVIS W CONTRAST, 05/02/2012. . TECHNIQUE: Multiple contiguous axial images were obtained through the abdomen following bolus infusi on of 95 ml Omnipaque 350 (iohexol) nonionic water-soluble contrast as a single exam dose. No oral contrast ingested. Using automated exposure control and adjustment of the mA and/or kV according to patient size, radiation dose was kept as low as reasonably achievable to obtain optimal diagnostic qu ality images. DICOM format image data is available electronically for review and comparison. FINDINGS: Lower Lungs: Tiny bilateral pleural effusions. Consolidation involving the right lower lobe basilar s egments.. Liver: Heterogeneous background to the liver. Lobulated contour. No mass or ductal dilatation. Gallbl adder is surgically absent. Portal vein is patent. Recannulated periumbilical vein noted. Spleen: Homogeneous density without enlargement. Pancreas: Unremarkable without mass or calcification. Kidneys: Normal in size and shape. 2 cm cortical based low density lesion on the left. This is minim ally larger from the prior exam. Hounsfield units are 22. No evidence of mass or hydronephrosis. Adrenal Glands: Unremarkable. Aorta/Retroperitoneum: The aorta is grossly unremarkable without aneurysmal dilation. No paraaortic or retrocrural adenopathy. Bowel/Mesentery: The bowel loops are grossly unremarkable. Abdominal Wall: Intact. Bony Structures: Unremarkable. CONCLUSION: 1. Right lower lobe infiltrate with tiny bilateral pleural effusions. 2. Cirrhosis. 3. 2 cm cortical based lesion involving the left kidney felt to relate to a cyst. It can be further assessed with ultrasound of the kidneys as an outpatient. Electronically signed by: Louis Fermin MD 06/03/2018 1:16 AM EST
[2018-06-03] MEDS: Insulin NovoLOG Aspart Correctional Sugar Inj SQ SCH ×5 (03:52→20:39)
[2018-06-03] MEDS: Chlorhexidine Gluconate 2% 1 Pack (2 Cloths) TOPICAL SCH (04:17)
[2018-06-03] MEDS: MethylPREDNISolone Sod Succinate Inj 125 MG/2 ML Vial IV.PUSH SCH ×4 (05:03→23:26)
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
[2018-06-03 08:11] LABS: Baso % (Auto) 0.2 % (0.0-2.0); Hematocrit 29.2 % (35.0-46.0); Hemoglobin 8.9 gm/dL (11.6-15.3); Lymph # (Auto) 0.3 th/mm3 (1.0-4.8); Mean Corpuscular Hemoglobin 20.8 pg (27.0-34.0); Mean Corpuscular Volume 68.2 fL (80.0-100.0); Mean Platelet Volume 8.5 fL (7.0-11.0); Mono # (Auto) 0.4 th/mm3 (0.0-0.9); Mono % (Auto) 8.4 % (0.0-8.0); Neut # (Auto) 4.4 th/mm3 (1.8-7.7); Neut % (Auto) 86.4 % (16.0-70.0); Platelet Count 109 th/mm3 (150-450); Red Blood Count 4.28 mil/mm3 (4.00-5.30); Red Cell Distribution Width 23.2 % (11.6-17.2); White Blood Count 5.1 th/mm3 (4.0-11.0)
[2018-06-03 08:17] LABS: Mean Corpuscular HGB Conc 30.5 % (32.0-36.0)
[2018-06-03] MEDS: Levofloxacin 500 mg Premix Inj 500 MG/100 ML PIGGYBACK IV.SIG SCH (09:05)
[2018-06-03] MEDS: Budesonide-Formoterol 160/4.5 MCG 6 GM Inhaler INH SCH ×2 (09:07→20:39)
[2018-06-03 09:10] LABS: Lymphocytes 4 % (9-44); Monocytes 4 % (0-8); Myelocytes 1 % (0-0); Platelet Morphology Normal (Normal); Tallied Nucleated RBC 4 (0-0)
[2018-06-03 09:11] LABS: Target Cells 1+
[2018-06-03] MEDS: Pantoprazole Inj 40 MG Vial IV.PUSH SCH (12:08)
[2018-06-03 13:55] LABS: Albumin 2.8 g/dL (3.4-5.0)
[2018-06-03 13:56] LABS: Total Protein 6.4 g/dL (6.4-8.2)
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
[2018-06-03] MEDS ORDERED: Magnesium Citrate Liq 300 ML Bottle PO ONE ×2 (16:00→17:00)
[2018-06-03] MEDS: Multivitamin Inj 10 ML, Thiamine Inj 100 MG, Folic Acid Inj 1 MG in Sodium Chloride 0.4... IV.SIG SCH (17:07)
[2018-06-03 21:15] LABS: Hepatitis A IgM Antibody Nonreactive (Nonreactive); Hepatitits B Surface Antigen Nonreactive (Nonreactive)
[2018-06-03 22:46] LABS: % Iron Saturation 8.9 % (20-50)
[2018-06-04] MEDS: Insulin NovoLOG Aspart Correctional Sugar Inj SQ SCH ×5 (03:59→22:28)
[2018-06-04] MEDS: Chlorhexidine Gluconate 2% 1 Pack (2 Cloths) TOPICAL SCH (06:43)
[2018-06-04] MEDS: MethylPREDNISolone Sod Succinate Inj 125 MG/2 ML Vial IV.PUSH SCH ×3 (06:46→23:05)
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
[2018-06-04] MEDS ORDERED: Acetaminophen 325 MG Tablet PO PRN (08:12)
[2018-06-04] MEDS: Aluminum/Magnesium/Simethacone Susp 30 ML UDC PO PRN ×2 (09:53→18:06)
[2018-06-04] MEDS: Levofloxacin 500 mg Premix Inj 500 MG/100 ML PIGGYBACK IV.SIG SCH (09:54)
[2018-06-04] MEDS: Acetaminophen 325 MG Tablet PO PRN (09:54)
[2018-06-04] MEDS: Budesonide-Formoterol 160/4.5 MCG 6 GM Inhaler INH SCH ×2 (09:56→23:02)
[2018-06-04] MEDS: Multivitamin Inj 10 ML, Thiamine Inj 100 MG, Folic Acid Inj 1 MG in Sodium Chloride 0.4... IV.SIG SCH (10:55)
[2018-06-04] MEDS: Morphine Inj 4 MG/ML Vial IV.PUSH PRN ×2 (10:58→15:31)
[2018-06-04] MEDS: Pantoprazole Inj 40 MG Vial IV.PUSH SCH (11:01)
--- NOTE | 2018-06-04 16:07 | P.PN ---
Subjective Interval history: ALERT NAD Physical Exam Vital signs: Vital Signs 06/03/18 17:00 06/03/18 18:00 06/03/18 19:00 Temperature Pulse Rate 106 H 97 H 104 H Respiratory Rate 32 H 32 H 47 H Blood Pressure 163/90 H Pulse Oximetry 96 98 97 06/03/18 19:14 06/03/18 20:00 06/03/18 21:00 Temperature 98.5 F Pulse Rate 107 H 99 H 91 H Respiratory Rate 38 H 21 20 Blood Pressure 152/79 H 144/75 H 159/80 H Pulse Oximetry 95 97 92 L 06/03/18 21:09 06/03/18 22:00 06/03/18 22:25 Temperature Pulse Rate 90 116 H 107 H Respiratory Rate 22 62 H 24 Blood Pressure 142/82 H Pulse Oximetry 96 79 L 90 L 06/03/18 23:00 06/04/18 00:00 06/04/18 01:00 Temperature Pulse Rate 94 H 94 H 92 H Respiratory Rate 18 15 15 Blood Pressure 143/66 H 144/72 H 160/73 H Pulse Oximetry 94 L 93 L 93 L 06/04/18 02:00 06/04/18 03:00 06/04/18 04:00 Temperature 98.8 F Pulse Rate 102 H 91 H 79 Respiratory Rate 14 34 H 24 Blood Pressure 163/70 H 134/63 139/68 Pulse Oximetry 92 L 91 L 90 L 06/04/18 05:00 06/04/18 06:00 06/04/18 07:00 Temperature Pulse Rate 79 95 H 94 H Respiratory Rate 15 36 H 54 H Blood Pressure 148/74 H 145/83 H Pulse Oximetry 94 L 94 L 90 L 06/04/18 07:42 06/04/18 07:43 06/04/18 08:00 Temperature Pulse Rate 85 84 81 Respiratory Rate 30 H 36 H 23 Blood Pressure 171/99 H 162/82 H 147/92 H Pulse Oximetry 91 L 92 L 92 L 06/04/18 08:28 06/04/18 09:00 06/04/18 10:00 Temperature Pulse Rate 78 81 86 Respiratory Rate 17 20 29 H Blood Pressure 160/88 H 152/83 H Pulse Oximetry 95 90 L 89 L 06/04/18 11:00 06/04/18 12:00 06/04/18 13:17 Temperature 98.8 F Pulse Rate 93 H 91 H 86 Respiratory Rate 35 H 18 16 Blood Pressure 153/95 H Pulse Oximetry 93 L 91 L Intake & Output 06/03/18 06/04/18 06/04/18 18:59 06:59 18:59 Intake Total 750 / 750 511.2 / 511.2 611.2 / 611.2 Output Total 900 / 900 Balance -150 / -150 511.2 / 511.2 611.2 / 611.2 Weight 93.3 kg Intake: IV 100 / 100 511.2 / 511.2 611.2 / 611.2 Levaquin 500 mg Premix Inj 500 100 / 100 100 / 100 mg In 100 ml @ 100 mls/hr IV. SIG Q24H [facility] Rx#:[id number] MVI-12 Inj 10 ML Thiamine Inj 511.2 / 511.2 511.2 / 511.2 100 MG Folvite Inj 1 MG In 1/2 Normal Saline Inj 500 ML @ 127. 8 mls/hr IV.SIG Q24H [facility] Rx#: [id number] Oral 650 / 650 Output: Urine 900 / 900 Other: # Incontinent Voids 5 Date of Last Bowel Movement 06/03/18 06/03/18 06/04/18 # Incontinent Bowel Movements 12 Narrative: GENERAL: Patient sitting up in bed. Appears comfortable. Alert and oriented x3. She does have mildly dysarthric speech. SKIN: Warm and dry. HEAD: Atraumatic. Normocephalic. EYES: Pupils unreactive, left pupil clouded. Patient reports this is at baseline, has had bilateral eye surgery. No scleral icterus. No injection or drainage. ENT: No nasal bleeding or discharge. Mucous membranes pink and moist. NECK: Trachea midline. No JVD. CARDIOVASCULAR: Regular rate and rhythm. RESPIRATORY: No accessory muscle use. Clear to auscultation. Breath sounds equal bilaterally. Diminished breath sounds secondary to body habitus. GASTROINTESTINAL: Abdomen soft, non-tender, nondistended. Hepatic and splenic margins not palpable. MUSCULOSKELETAL: Extremities without clubbing, cyanosis. Trace bilateral lower extremity edema.. No obvious deformities. NEUROLOGICAL: Awake and alert. No obvious cranial nerve deficits. Motor grossly within normal limits. Five out of 5 muscle strength in the arms and legs. PSYCHIATRIC: Appropriate mood and affect; insight and judgment normal. Results - Labs CBC & Chem 7: 06/03/18 06:30 06/02/18 04:13 Laboratory Results - last 24 hr 06/03/18 06/03/18 06/03/18 12:19 16:00 17:10 POC Glucose Magnesium 1.5 Iron 46 L TIBC 515 H % Saturation 8.9 L Ferritin 17 Tumor Marker AFP 4.8 CA 19-9 Antigen Hepatitis A IgM Ab Hep Bs Antigen Hep B Core IgM Ab Hepatitis C Antibody Hep C IgG Ab 06/03/18 06/03/18 06/03/18 17:10 17:10 17:10 POC Glucose Magnesium Iron TIBC % Saturation Ferritin Tumor Marker AFP CA 19-9 Antigen 62.4 H Hepatitis A IgM Ab Nonreactive Hep Bs Antigen Nonreactive Hep B Core IgM Ab Nonreactive Hepatitis C Antibody Reactive H Hep C IgG Ab Reactive H 06/03/18 06/04/18 06/04/18 20:38 03:17 12:53 POC Glucose 155 H 151 H 128 H Magnesium Iron TIBC % Saturation Ferritin Tumor Marker AFP CA 19-9 Antigen Hepatitis A IgM Ab Hep Bs Antigen Hep B Core IgM Ab Hepatitis C Antibody Hep C IgG Ab Microbiology 06/03/18 15:40 Stool Stool Occult Blood (FERNANDO) - Final Hemoccult negative Assessment and Plan - Plan COPD RESPIRATORY FAILURE H/O CVA PLAN O2 NEEDED BRONCHODILATOR THERAPY INCREASE ACTIVITY F/U CXRAY
[2018-06-04] MEDS ORDERED: Gadobutrol PF 10 MMOL/10 ML Vial (for RAD) IV.SIG ONE (16:14)
--- NOTE | 2018-06-04 16:35 | XR ---
EXAM DATE: 06/04/2018 4:29 PM EST AGE/SEX: 57 years / Female INDICATIONS: Short of breath CLINICAL DATA: This is the patient's subsequent encounter. Patient reports that signs and symptoms h ave been present for 4 - 6 days and indicates a pain score of 0/10. MEDICAL/SURGICAL HISTORY: . Chronic obstructive pulmonary disease. None. COMPARISON: [facility] [place], CHEST SINGLE AP, 10/15/2015. . FINDINGS: A single AP view of the chest demonstrates bibasilar opacities, increased since prior exam. These lik johanne represent a combination of airspace disease and a small amount of pleural fluid. Stable enlargeme nt of the cardiomediastinal silhouette. CONCLUSION: 1. Mild bibasilar opacities, likely a combination of airspace disease and small amount of pleural fl uid. 2. Stable enlargement of the cardiomediastinal silhouette. Electronically signed by: Mahnaz Alvarez MD 06/04/2018 4:34 PM EST
[2018-06-04] MEDS ORDERED: Lidocaine PF 1% Inj 5 ML Syringe OTHER ONE (16:50)
--- NOTE | 2018-06-04 17:25 | P.PCN ---
Date of procedure: 06/04/18 Pre-op diagnosis: Anemia, abdominal pain, cirrhosis Procedure: PROCEDURE PERFORMED EGD with biopsies followed by colonoscopy with biopsies PROCEDURE: The procedure, risks and benefits were discussed with Patient/POA and informed consent was obtained. Anesthesia sedated Patient with Diprivan. Patient was placed in the left lateral decubitus position. EGD: The Pentax videoscope was introduced through the oropharynx and advanced to the second portion of the duodenum under direct visualization. Retroflexion was performed in the stomach. FINDINGS: The esophagus this appeared to be unremarkable and within normal limits no esophageal varices noted The stomach the gastric mucosa appeared to be somewhat edematous with a cobblestone appearance consistent with mild portal hypertensive gastropathy with patchy erythema in the antrum possibly representing angiodysplasia this was biopsied for further evaluation retroflexion was unremarkable with no evidence of gastric varices The duodenum this was normal Colonoscopy: The Pentax videoscope was introduced through the rectum and advanced to cecum where the ileocecal valve and appendiceal orifice were identified. Retroflexion was performed in the rectum. Colonic prep was fair FINDINGS: Colonic withdrawal time greater than 6 minutes. As the scope was slowly withdrawn colonic mucosa was carefully inspected the patient was noted to have somewhat of an erythemic mucosa in the ascending colon of unclear significance this was biopsied otherwise colonic examination was unremarkable so is retroflexion and rectal examination ESTIMATED BLOOD LOSS: None SPECIMENS REMOVED: Gastric and colon biopsies COMPLICATIONS: None IMPRESSION: Portal gastropathy Ascending colon erythema PLAN: Await biopsies Recommend low-salt diet Continue with current supportive care Monitor labs Anesthesia: MAC Surgeon: Chandra Madden Condition: stable Disposition: floor
--- NOTE | 2018-06-04 17:33 | MR ---
EXAM DATE: 06/04/2018 5:04 PM EST AGE/SEX: 57 years / Female INDICATIONS: Abdominal pain. HTN. Ischemia. CLINICAL DATA: This is the patient's initial encounter. Patient reports that signs and symptoms have been present for 3 days and indicates a pain score of 6/10. MEDICAL/SURGICAL HISTORY: Diabetes mellitus type II. Hypertension. Cirrhosis. None. COMPARISON: [facility] – [place], CT ABDOMEN W CONTRAST, 06/03/2018. . TECHNIQUE: 20 ml Gadavist (gadobutrol) contrast infused MR angiography (single exam dose) was perfo rmed with digital subtraction. The data was postprocessed with a variety of visualization algorithms including full-volume maximum-intensity projection, multiplanar sliding thin slab reformation, and c urved planar reformation. FINDINGS: The abdominal aorta and iliacs are widely patent. Looking at the aortic visceral vessels, the celiac, SMA and [place] are widely patent with classical anatomy identified. Normal single renal arteries are pr esent bilaterally. In the pelvis, the hypogastrics are patent bilaterally. Elsewhere on the exam, note is again made of a cirrhotic appearance of the liver. Mild ascites. Nonsp ecific indurative changes in the subcutaneous tissues of the right lateral abdominal wall and flank r egion. Left renal cyst. CONCLUSION: No evidence of mesenteric arterial stenosis Electronically signed by: Favio Flores MD 06/04/2018 5:31 PM EST
[2018-06-05] MEDS: Insulin NovoLOG Aspart Correctional Sugar Inj SQ SCH ×5 (03:28→21:41)
[2018-06-05 05:13] LABS: Baso % (Auto) 0.1 % (0.0-2.0); Hematocrit 31.9 % (35.0-46.0); Hemoglobin 9.4 gm/dL (11.6-15.3); Lymph # (Auto) 0.2 th/mm3 (1.0-4.8); Lymph % (Auto) 3.9 % (9.0-44.0); Mean Corpuscular Hemoglobin 20.2 pg (27.0-34.0); Mean Corpuscular Volume 68.8 fL (80.0-100.0); Mean Platelet Volume 8.7 fL (7.0-11.0); Mono # (Auto) 0.5 th/mm3 (0.0-0.9); Mono % (Auto) 10.2 % (0.0-8.0); Neut # (Auto) 4.2 th/mm3 (1.8-7.7); Neut % (Auto) 85.8 % (16.0-70.0); Platelet Count 110 th/mm3 (150-450); Red Blood Count 4.64 mil/mm3 (4.00-5.30); Red Cell Distribution Width 23.7 % (11.6-17.2); White Blood Count 4.9 th/mm3 (4.0-11.0)
[2018-06-05 05:16] LABS: Mean Corpuscular HGB Conc 29.3 % (32.0-36.0)
[2018-06-05 05:36] LABS: Albumin 2.7 g/dL (3.4-5.0); Anion Gap 5 meq/L (5-15); Aspartate Aminotransferase 71 U/L (15-37); Blood Urea Nitrogen 27 mg/dL (7-18); Calcium 8.2 mg/dL (8.5-10.1); Carbon Dioxide 37.3 meq/L (21.0-32.0); Chloride 97 meq/L (98-107); Glomerular Filtration Rate Greater Than 89 mL/min (>89); Glucose,Random 208 mg/dL (74-106); Potassium 4.5 meq/L (3.5-5.1); Sodium 139 meq/L (136-145)
[2018-06-05 05:37] LABS: Alanine Aminotransferase 88 U/L (10-53)
[2018-06-05 05:40] LABS: Alkaline Phosphatase 130 U/L (45-117); Total Protein 6.1 g/dL (6.4-8.2)
[2018-06-05] MEDS: MethylPREDNISolone Sod Succinate Inj 125 MG/2 ML Vial IV.PUSH SCH ×2 (05:59→21:42)
[2018-06-05] MEDS: Levofloxacin 500 mg Premix Inj 500 MG/100 ML PIGGYBACK IV.SIG SCH (09:32)
[2018-06-05] MEDS: Aluminum/Magnesium/Simethacone Susp 30 ML UDC PO PRN (09:32)
[2018-06-05] MEDS: Budesonide-Formoterol 160/4.5 MCG 6 GM Inhaler INH SCH ×2 (09:33→21:43)
[2018-06-05] MEDS: Acetaminophen 325 MG Tablet PO PRN (09:36)
[2018-06-05] MEDS: Multivitamin Inj 10 ML, Thiamine Inj 100 MG, Folic Acid Inj 1 MG in Sodium Chloride 0.4... IV.SIG SCH (10:53)
--- NOTE | 2018-06-05 11:46 | P.PNGI ---
Subjective Interval history: Resting in the bed no obvious shortness of breath appears more controlled currently on oxygen per nasal cannula 3 L. Encourage patient to be out of bed up in chair today and sitting up in the bed to maintain her mobility and strengthening Still has symptoms of dyspepsia will add Carafate, still has some left upper quadrant discomfort, afebrile Physical Exam Vital signs: Vital Signs 06/04/18 12:00 06/04/18 13:17 06/04/18 16:00 Temperature 98.8 F 97.6 F Pulse Rate 91 H 86 80 Respiratory Rate 18 16 18 Blood Pressure 153/95 H 161/94 H Pulse Oximetry 91 L 94 L 06/04/18 18:08 06/04/18 18:24 06/04/18 20:00 Temperature 98.3 F 98.0 F Pulse Rate 91 H 89 95 H Respiratory Rate 20 16 Blood Pressure 165/94 H 119/74 Pulse Oximetry 95 94 L 06/04/18 20:10 06/05/18 00:00 06/05/18 04:00 Temperature 98.3 F 97.8 F Pulse Rate 91 H 98 H 83 Respiratory Rate 18 16 Blood Pressure 123/72 141/81 H Pulse Oximetry 94 L 95 95 06/05/18 07:25 06/05/18 08:00 06/05/18 08:13 Temperature 97.8 F Pulse Rate 75 94 H 94 H Respiratory Rate 18 17 Blood Pressure 138/66 Pulse Oximetry 98 95 Intake & Output 06/04/18 06/05/18 06/05/18 18:59 06:59 18:59 Intake Total 911.2 / 911.2 480 / 480 100 / 100 Output Total 700 / 700 Balance 911.2 / 911.2 -220 / -220 100 / 100 Weight 93.7 kg Intake: IV 611.2 / 611.2 100 / 100 Levaquin 500 mg Premix Inj 500 100 / 100 100 / 100 mg In 100 ml @ 100 mls/hr IV. SIG Q24H [facility] Rx#:[id number] MVI-12 Inj 10 ML Thiamine Inj 511.2 / 511.2 100 MG Folvite Inj 1 MG In 1/2 Normal Saline Inj 500 ML @ 127. 8 mls/hr IV.SIG Q24H [facility] Rx#: [id number] Oral 480 / 480 Anesthesia Amount 300 / 300 Output: Urine 700 / 700 Other: # Voids 1 Date of Last Bowel Movement 06/04/18 06/04/18 - Constitutional mild distress, obese, disheveled, cooperative (Hard of hearing) - Routine HEENT Exam Head: Present: normocephalic ENT: Present: mucous membranes moist - Routine Neck Exam Present: supple - Routine Respiratory Exam Present: diminished air movement (But no audible wheezing or rhonchi O2 per nasal cannula 3 L) - Routine Cardiovascular Exam Present: S1, S2 - Routine Abdominal Exam Present: distended (Round, left upper quadrant discomfort patient states fairly constant but is able to sleep, soft bowel sounds) Results - Labs CBC & Chem 7: 06/05/18 04:01 06/05/18 04:01 Laboratory Results - last 24 hr 06/04/18 06/04/18 06/04/18 12:53 17:56 19:48 WBC RBC Hgb Hct MCV MCH MCHC RDW Plt Count MPV Neut % (Auto) Lymph % (Auto) [place] % (Auto) Eos % (Auto) Baso % (Auto) Neut # (Auto) Lymph # (Auto) [place] # (Auto) Eos # (Auto) Baso # (Auto) WBC Differential Differential Comment Sodium Potassium Chloride Carbon Dioxide Anion Gap BUN Creatinine Estimated GFR POC Glucose 128 H 130 H 155 H Random Glucose Calcium Total Bilirubin AST ALT Alkaline Phosphatase Total Protein Albumin Tumor Marker AFP 06/04/18 06/05/18 06/05/18 19:57 03:08 04:01 WBC 4.9 RBC 4.64 Hgb 9.4 L Hct 31.9 L MCV 68.8 L MCH 20.2 L MCHC 29.3 L RDW 23.7 H Plt Count 110 L MPV 8.7 Neut % (Auto) 85.8 H Lymph % (Auto) 3.9 L [place] % (Auto) 10.2 H Eos % (Auto) 0.0 Baso % (Auto) 0.1 Neut # (Auto) 4.2 Lymph # (Auto) 0.2 L [place] # (Auto) 0.5 Eos # (Auto) 0.0 Baso # (Auto) 0.0 WBC Differential . Differential Comment Auto diff final Sodium Potassium Chloride Carbon Dioxide Anion Gap BUN Creatinine Estimated GFR POC Glucose 220 H Random Glucose Calcium Total Bilirubin AST ALT Alkaline Phosphatase Total Protein Albumin Tumor Marker AFP 4.7 06/05/18 06/05/1818 04:01 07:16 11:35 WBC RBC Hgb Hct MCV MCH MCHC RDW Plt Count MPV Neut % (Auto) Lymph % (Auto) [place] % (Auto) Eos % (Auto) Baso % (Auto) Neut # (Auto) Lymph # (Auto) [place] # (Auto) Eos # (Auto) Baso # (Auto) WBC Differential Differential Comment Sodium 139 Potassium 4.5 Chloride 97 L Carbon Dioxide 37.3 H Anion Gap 5 BUN 27 H Creatinine 0.62 Estimated GFR Greater than 89 POC Glucose 124 H 248 H Random Glucose 208 H Calcium 8.2 L Total Bilirubin 0.6 AST 71 H ALT 88 H Alkaline Phosphatase 130 H Total Protein 6.1 L Albumin 2.7 L Tumor Marker AFP - Imaging Impressions Abdomen MRI 06/04/18 07:01 CONCLUSION: No evidence of mesenteric arterial stenosis Chest X-Ray 06/04/18 16:07 CONCLUSION: 1. Mild bibasilar opacities, likely a combination of airspace disease and small amount of pleural fluid. 2. Stable enlargement of the cardiomediastinal silhouette. Assessment and Plan - Plan obese 57-year-old female who was in her usual state of health up until 2017 when she was brought to the hospital for COPD, shortness of breath, and possible respiratory failure. Patient has a history of CVA and is been on Eliquis which is currently on hold. Patient is now complaining of left upper quadrant radiating over to the right upper quadrant abdominal pain worsening after eating over the past 2 months. Aggregating factors could be related to patient's hepatitis C diagnosed approximately 40 years ago without any treatment regimen versus constipation versus cirrhosis with also a history of daily alcohol consumption up until the past week. Current labs reviewed which show hemoglobin 8.7 PT/INR 1.3. Patient is very hard of hearing. Patient notes that she is been in [place] up until approximately 1 year ago when she was diagnosed with the cirrhosis. Patient notes that she has had labs drawn in the past but is a poor historian. Patient denies any family history of colon cancer. She does note previous EGD colonoscopy several years ago but unknown timing and findings. Patient also notes uncontrolled symptoms of nausea and reflux and states that she has been on Protonix daily up until approximately a week ago but symptoms have continued for several months to be uncontrolled with dyspepsia, reflux, but no dysphasia. Gastroenterology has been consulted to assist in her care. Note patient is restrained with regards, was arrested approximately 1 week ago when she started having shortness of breath and COPD exacerbation possible respiratory failure. Patient was seen per pulmonary medicine, who states she is stable for EGD and colonoscopy Monday Dyspepsia, also has symptoms of nausea and reflux GERD, has been on Protonix up until approximately 1 week ago but states that her dyspepsia symptoms have worsened over the past few months Left upper quadrant pain radiating into the mid and right upper quadrant, history of hepatitis C with cirrhosis and no previous treatment regimen. Was in [place] approximately 1 year ago when diagnosis occurred History of CVA was on Eliquis currently be inhaled Anemia probably related to chronic disease 06/03/2018 patient is resting in the bed appears to be feeling somewhat better today and a little more alert. Still complains of left upper quadrant pain which radiates into the mid epigastric region this could be related to dyspepsia or some type of vascular blockage. Will evaluate EGD: In the a.m. but will rule out any acute vascular needs with MRA of the abdomen with contrast today. Labs reviewed which show hemoglobin 8.9 and WBC count 5.9 Anemia probably related to chronic disease, further recommendations to follow after EGD/colonoscopy tomorrow. Occult blood testing per hospitalist still pending 06/05/2018 patient is status post EGD/ colonoscopy on 06/05/2018. Findings include Portal gastropathy and Ascending colon erythema. Discussed findings with patient but she is still complaining of left upper quadrant discomfort fairly constant. Patient still complains of dyspepsia and is back on her Protonix. Liver labs reviewed which does show active hep C and positive antibodies, RNA pending, alpha-fetoprotein normal at 4.7. Normal bilirubin 0.6, elevated AST 130, ALT 71, alkaline phosphatase 88. Left upper quadrant pain unspecified unless it is related to a sending colon erythema. Hemoglobin 9.4, no leukocytosis noted PLAN Diet low-salt, cardiac diet Biopsies pending Will need to review with patient on an outpatient office visit Protonix 40 mg twice daily, transition from IV Add Carafate 1 g before meals and at bedtime Okay to restart Eliquis supportive care Monitor labs Patient was seen per myself and Dr. Cornejo, note was written on his behalf
[2018-06-05] MEDS: Sucralfate 1 GM Tablet PO SCH ×3 (12:34→21:40)
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
[2018-06-05] MEDS: Morphine Inj 4 MG/ML Vial IV.PUSH PRN ×2 (12:56→17:09)
[2018-06-05] MEDS ORDERED: Iron Sucrose Inj 100 MG/5 ML Vial IV.PUSH SCH (13:00)
[2018-06-05] MEDS ORDERED: Iron Sucrose Inj 200 MG in Sodium Chlor 0.9% Inj 100 ML IV.SIG ONE (15:00)
--- NOTE | 2018-06-05 15:50 | P.PN ---
Subjective Interval history: ALERT NAD Physical Exam Vital signs: Vital Signs 06/04/18 16:00 06/04/18 18:08 06/04/18 18:24 Temperature 97.6 F 98.3 F Pulse Rate 80 91 H 89 Respiratory Rate 18 20 Blood Pressure 161/94 H 165/94 H Pulse Oximetry 94 L 95 Pulse Oximetry [Resting on Room Air] 06/04/18 20:00 06/04/18 20:10 06/05/18 00:00 Temperature 98.0 F 98.3 F Pulse Rate 95 H 91 H 98 H Respiratory Rate 16 18 Blood Pressure 119/74 123/72 Pulse Oximetry 94 L 94 L 95 Pulse Oximetry [Resting on Room Air] 06/05/18 04:00 06/05/18 07:25 06/05/18 08:00 Temperature 97.8 F 97.8 F Pulse Rate 83 75 94 H Respiratory Rate 16 18 17 Blood Pressure 141/81 H 138/66 Pulse Oximetry 95 98 95 Pulse Oximetry [Resting on Room Air] 06/05/18 08:13 06/05/18 11:51 06/05/18 12:00 Temperature 97.4 F L Pulse Rate 94 H 87 80 Respiratory Rate 16 Blood Pressure 135/66 Pulse Oximetry 95 Pulse Oximetry [Resting on Room Air] 06/05/18 14:11 06/05/18 14:27 Temperature Pulse Rate 78 Respiratory Rate 18 Blood Pressure Pulse Oximetry Pulse Oximetry [Resting on Room Air] 88 L Intake & Output 06/04/18 06/05/18 06/05/18 18:59 06:59 18:59 Intake Total 911.2 / 911.2 480 / 480 611.2 / 611.2 Output Total 700 / 700 Balance 911.2 / 911.2 -220 / -220 611.2 / 611.2 Weight 93.7 kg Intake: IV 611.2 / 611.2 611.2 / 611.2 Levaquin 500 mg Premix Inj 500 100 / 100 100 / 100 mg In 100 ml @ 100 mls/hr IV. SIG Q24H [facility] Rx#:[id number] MVI-12 Inj 10 ML Thiamine Inj 511.2 / 511.2 511.2 / 511.2 100 MG Folvite Inj 1 MG In 1/2 Normal Saline Inj 500 ML @ 127. 8 mls/hr IV.SIG Q24H [facility] Rx#: [id number] Oral 480 / 480 Anesthesia Amount 300 / 300 Output: Urine 700 / 700 Other: # Voids 1 Date of Last Bowel Movement 06/04/18 06/04/18 Narrative: GENERAL: Patient sitting up in bed. Appears comfortable. Alert and oriented x3. She does have mildly dysarthric speech. SKIN: Warm and dry. HEAD: Atraumatic. Normocephalic. EYES: Pupils unreactive, left pupil clouded. Patient reports this is at baseline, has had bilateral eye surgery. No scleral icterus. No injection or drainage. ENT: No nasal bleeding or discharge. Mucous membranes pink and moist. NECK: Trachea midline. No JVD. CARDIOVASCULAR: Regular rate and rhythm. RESPIRATORY: No accessory muscle use. Clear to auscultation. Breath sounds equal bilaterally. Diminished breath sounds secondary to body habitus. GASTROINTESTINAL: Abdomen soft, non-tender, nondistended. Hepatic and splenic margins not palpable. MUSCULOSKELETAL: Extremities without clubbing, cyanosis. Trace bilateral lower extremity edema.. No obvious deformities. NEUROLOGICAL: Awake and alert. No obvious cranial nerve deficits. Motor grossly within normal limits. Five out of 5 muscle strength in the arms and legs. PSYCHIATRIC: Appropriate mood and affect; insight and judgment normal. Results - Labs CBC & Chem 7: 06/05/18 04:01 06/05/18 04:01 Laboratory Results - last 24 hr 06/04/18 06/04/18 06/04/18 17:56 19:48 19:57 WBC RBC Hgb Hct MCV MCH MCHC RDW Plt Count MPV Neut % (Auto) Lymph % (Auto) [place] % (Auto) Eos % (Auto) Baso % (Auto) Neut # (Auto) Lymph # (Auto) [place] # (Auto) Eos # (Auto) Baso # (Auto) WBC Differential Differential Comment Sodium Potassium Chloride Carbon Dioxide Anion Gap BUN Creatinine Estimated GFR POC Glucose 130 H 155 H Random Glucose Calcium Total Bilirubin AST ALT Alkaline Phosphatase Total Protein Albumin Tumor Marker AFP 4.7 06/05/18 06/05/18 06/05/18 03:08 04:01 04:01 WBC 4.9 RBC 4.64 Hgb 9.4 L Hct 31.9 L MCV 68.8 L MCH 20.2 L MCHC 29.3 L RDW 23.7 H Plt Count 110 L MPV 8.7 Neut % (Auto) 85.8 H Lymph % (Auto) 3.9 L [place] % (Auto) 10.2 H Eos % (Auto) 0.0 Baso % (Auto) 0.1 Neut # (Auto) 4.2 Lymph # (Auto) 0.2 L [place] # (Auto) 0.5 Eos # (Auto) 0.0 Baso # (Auto) 0.0 WBC Differential . Differential Comment Auto diff final Sodium 139 Potassium 4.5 Chloride 97 L Carbon Dioxide 37.3 H Anion Gap 5 BUN 27 H Creatinine 0.62 Estimated GFR Greater than 89 POC Glucose 220 H Random Glucose 208 H Calcium 8.2 L Total Bilirubin 0.6 AST 71 H ALT 88 H Alkaline Phosphatase 130 H Total Protein 6.1 L Albumin 2.7 L Tumor Marker AFP 06/05/18 06/05/18 07:16 11:35 WBC RBC Hgb Hct MCV MCH MCHC RDW Plt Count MPV Neut % (Auto) Lymph % (Auto) [place] % (Auto) Eos % (Auto) Baso % (Auto) Neut # (Auto) Lymph # (Auto) [place] # (Auto) Eos # (Auto) Baso # (Auto) WBC Differential Differential Comment Sodium Potassium Chloride Carbon Dioxide Anion Gap BUN Creatinine Estimated GFR POC Glucose 124 H 248 H Random Glucose Calcium Total Bilirubin AST ALT Alkaline Phosphatase Total Protein Albumin Tumor Marker AFP - Imaging Impressions Abdomen MRI 06/04/18 07:01 CONCLUSION: No evidence of mesenteric arterial stenosis Chest X-Ray 06/04/18 16:07 CONCLUSION: 1. Mild bibasilar opacities, likely a combination of airspace disease and small amount of pleural fluid. 2. Stable enlargement of the cardiomediastinal silhouette. Assessment and Plan - Plan COPD RESPIRATORY FAILURE H/O CVA PLAN O2 NEEDED BRONCHODILATOR THERAPY INCREASE ACTIVITY
[2018-06-05] MEDS ORDERED: Influenza (Quadrivalent) Vaccine 0.5 ML Syringe IM ONE (22:30)
[2018-06-06] MEDS: Aluminum/Magnesium/Simethacone Susp 30 ML UDC PO PRN ×2 (00:32→06:19)
[2018-06-06] MEDS: Insulin NovoLOG Aspart Correctional Sugar Inj SQ SCH ×2 (02:12→08:42)
[2018-06-06 06:05] LABS: Lymph # (Auto) 0.3 th/mm3 (1.0-4.8); Lymph % (Auto) 5.7 % (9.0-44.0); Mean Corpuscular Hemoglobin 20.6 pg (27.0-34.0); Mean Corpuscular Volume 68.4 fL (80.0-100.0); Mean Platelet Volume 8.6 fL (7.0-11.0); Mono # (Auto) 0.4 th/mm3 (0.0-0.9); Mono % (Auto) 7.6 % (0.0-8.0); Neut % (Auto) 86.7 % (16.0-70.0); Platelet Count 119 th/mm3 (150-450); Red Blood Count 4.39 mil/mm3 (4.00-5.30); Red Cell Distribution Width 23.3 % (11.6-17.2); White Blood Count 5.7 th/mm3 (4.0-11.0)
[2018-06-06 06:25] LABS: Albumin 2.5 g/dL (3.4-5.0); Anion Gap 4 meq/L (5-15); Blood Urea Nitrogen 23 mg/dL (7-18); Calcium 7.9 mg/dL (8.5-10.1); Carbon Dioxide 37.3 meq/L (21.0-32.0); Chloride 99 meq/L (98-107); Glomerular Filtration Rate Greater Than 89 mL/min (>89); Glucose,Random 127 mg/dL (74-106); Potassium 4.6 meq/L (3.5-5.1); Sodium 140 meq/L (136-145)
[2018-06-06 06:26] LABS: Mean Corpuscular HGB Conc 30.1 % (32.0-36.0); Phosphorus 3.6 mg/dL (2.5-4.9)
[2018-06-06 06:40] VITALS: RESP 20
[2018-06-06 07:55] VITALS: PULSE 91
[2018-06-06] MEDS: MethylPREDNISolone Sod Succinate Inj 125 MG/2 ML Vial IV.PUSH SCH (08:36)
[2018-06-06] MEDS: Sucralfate 1 GM Tablet PO SCH (08:37)
[2018-06-06] MEDS: Levofloxacin 500 mg Premix Inj 500 MG/100 ML PIGGYBACK IV.SIG SCH (08:41)
[2018-06-06] MEDS ORDERED: Influenza (Quadrivalent) Vaccine 0.5 ML Syringe IM ONE (09:00)
[2018-06-06 09:46] VITALS: BP 122/55; TEMP 97.4; O2SAT 92
[2018-06-06] MEDS: Budesonide-Formoterol 160/4.5 MCG 6 GM Inhaler INH SCH (10:15)
--- NOTE | 2018-06-06 10:16 | P.PNIM ---
Subjective Interval history: Patient says she is feeling right. Denies any chest pain or shortness of breath. Physical Exam Vital signs: Vital Signs 06/05/18 11:51 06/05/18 12:00 06/05/18 14:11 Temperature 97.4 F L Pulse Rate 87 80 Respiratory Rate 16 Blood Pressure 135/66 Pulse Oximetry 95 Pulse Oximetry [Resting on Room Air] 88 L 06/05/18 14:27 06/05/18 16:00 06/05/18 19:00 Temperature 98.0 F Pulse Rate 78 86 81 Respiratory Rate 18 16 17 Blood Pressure 115/58 L Pulse Oximetry 94 L 97 Pulse Oximetry [Resting on Room Air] 06/05/18 20:00 06/06/18 00:00 06/06/18 04:00 Temperature 98.1 F 98.9 F 97.7 F Pulse Rate 90 80 76 Respiratory Rate 18 18 20 Blood Pressure 114/55 L 119/62 125/74 Pulse Oximetry 92 L 93 L 92 L Pulse Oximetry [Resting on Room Air] 06/06/18 07:53 06/06/18 07:54 06/06/18 08:00 Temperature 97.4 F L Pulse Rate 91 H 91 H Respiratory Rate 20 20 Blood Pressure 122/55 L Pulse Oximetry 94 L 92 L Pulse Oximetry [Resting on Room Air] Intake & Output 06/05/18 06/06/18 06/06/18 18:59 06:59 18:59 Intake Total 1201.2 / 1201.2 240 / 240 Balance 1201.2 / 1201.2 240 / 240 Weight 96.3 kg Intake: IV 721.2 / 721.2 Venofer Inj 200 MG In NS Inj 110 / 110 100 ML @ 110 mls/hr IV.SIG ONCE ONE Rx#:[id number] Levaquin 500 mg Premix Inj 500 100 / 100 mg In 100 ml @ 100 mls/hr IV. SIG Q24H [facility] Rx#:[id number] MVI-12 Inj 10 ML Thiamine Inj 511.2 / 511.2 100 MG Folvite Inj 1 MG In 1/2 Normal Saline Inj 500 ML @ 127. 8 mls/hr IV.SIG Q24H [facility] Rx#: [id number] Oral 480 / 480 240 / 240 Other: # Voids 3 4 Date of Last Bowel Movement 06/05/18 06/04/18 # Bowel Movements 1 Narrative: GENERAL: Bed. Appears comfortable. SKIN: Warm and dry. HEAD: Normocephalic. EYES: No scleral icterus. No injection or drainage. NECK: Supple, trachea midline. No JVD or lymphadenopathy. CARDIOVASCULAR: Regular rate and rhythm without murmurs, gallops, or rubs. RESPIRATORY: Breath sounds equal bilaterally. No accessory muscle use. GASTROINTESTINAL: Abdomen soft, non-tender, nondistended. MUSCULOSKELETAL: No cyanosis, or edema. BACK: Nontender without obvious deformity. No CVA tenderness. Results - Labs CBC & Chem 7: 06/06/18 03:45 06/06/18 03:45 Laboratory Results - last 24 hr 06/05/18 06/05/18 06/05/18 11:35 17:09 20:02 WBC RBC Hgb Hct MCV MCH MCHC RDW Plt Count MPV Neut % (Auto) Lymph % (Auto) [place] % (Auto) Eos % (Auto) Baso % (Auto) Neut # (Auto) Lymph # (Auto) [place] # (Auto) Eos # (Auto) Baso # (Auto) WBC Differential Differential Comment Sodium Potassium Chloride Carbon Dioxide Anion Gap BUN Creatinine Estimated GFR POC Glucose 248 H 80 119 H Random Glucose Calcium Phosphorus Magnesium Albumin 06/06/18 06/06/18 06/06/18 02:07 03:45 03:45 WBC 5.7 RBC 4.39 Hgb 9.0 L Hct 30.0 L MCV 68.4 L MCH 20.6 L MCHC 30.1 L RDW 23.3 H Plt Count 119 L MPV 8.6 Neut % (Auto) 86.7 H Lymph % (Auto) 5.7 L [place] % (Auto) 7.6 Eos % (Auto) 0.0 Baso % (Auto) 0.0 Neut # (Auto) 5.0 Lymph # (Auto) 0.3 L [place] # (Auto) 0.4 Eos # (Auto) 0.0 Baso # (Auto) 0.0 WBC Differential . Differential Comment Auto diff final Sodium 140 Potassium 4.6 Chloride 99 Carbon Dioxide 37.3 H Anion Gap 4 L BUN 23 H Creatinine 0.58 Estimated GFR Greater than 89 POC Glucose 152 H Random Glucose 127 H Calcium 7.9 L Phosphorus 3.6 Magnesium 2.0 Albumin 2.5 L 06/06/18 08:08 WBC RBC Hgb Hct MCV MCH MCHC RDW Plt Count MPV Neut % (Auto) Lymph % (Auto) [place] % (Auto) Eos % (Auto) Baso % (Auto) Neut # (Auto) Lymph # (Auto) [place] # (Auto) Eos # (Auto) Baso # (Auto) WBC Differential Differential Comment Sodium Potassium Chloride Carbon Dioxide Anion Gap BUN Creatinine Estimated GFR POC Glucose 146 H Random Glucose Calcium Phosphorus Magnesium Albumin Assessment and Plan - Plan //Acute hypercapnic respiratory failure- improving slowly //COPD exacerbation/ RLL pneumonia pCO2 in the 70s. Unknown baseline. -Chest x-ray with diffuse vascular prominence. -CTA chest negative for PE -echo with EF 60%/ no regional wall motion abnormalities and mild aortic stenosis -continue on IV steroids, antibiotic, neb treatment. -pulmonary following. = Discharge on oxygen 2 L via nasal cannula continuously. Taper to by mouth prednisone. Nebulizers continued. Levofloxacin to complete treatment course. Follow-up with pulmonology as outpatient. //Alcohol abuse/ withdrawal - continue on CIWA protocol //Mild aortic valve stenosis noted on echocardiogram. Normal ejection fraction follow-up with primary care. //Anemia; hypochromic, microcytic iron panel noted; occult blood negative. continue to monitor H/H. -EGD showing portal gastropathy. No signs of acute bleeding. Restart home anticoagulation. Patient will need to follow-up with GI as outpatient to go over biopsy results. //History of stroke. Reportedly on Eliquis. hold aspirin for now due to anemia till GI w/u completed. =restarted eliquis //Diabetes mellitus. Chronic. on steroids. diabetic diet and insulin sliding scale. Monitor. //elevated LFT's/ history of Cirrhosis/ Hepatitis C- continue to monitor. //DVT prophylaxis with SCD's she has a warrant for elder abuse and officer is at bedside. d/w the RN. Discharge Planning: Discharge to care of law enforcement.
--- NOTE | 2018-06-06 10:23 | P.DS ---
Date of admission: 05/30/18 20:44 Primary care physician: UNKNOWN Brief History from admission: 57-year-old female with a history of stroke on Eliquis, aspirin, diabetes, COPD on 2 L of oxygen continuously, hypertension who is not been on her medications or oxygen for the past month. She traveled down here from [facility] on a bus, arriving 05/30. She was arrested by police due to an open warrant for elderly abuse. All the way to alf complained of shortness of breath, found to have oxygen saturation of 85 on room air, and brought to the ER. Patient reports 3-month history of progressively worsening shortness of breath, cough productive of yellow sputum. She reports pleuritic type chest pain, worse with coughing and with deep breathing which has been present over the past several days. She denies any acute swelling in her extremities. Denies any nausea or vomiting. Again, she has been off all medications as well as oxygen for the past month. DS: Summary Hospital Course: Patient was admitted with hypercapnic respiratory failure, COPD exacerbation, found to have right lower lobe pneumonia on x-ray. Pulmonology was consulted. Patient was treated with broad-spectrum antibiotics, nebulizations, steroids with improvement. BNP found to be mildly elevated in the 400s, however cardiogram with normal ejection fraction, elevated estimated pulmonary pressures in the 60s likely secondary to COPD. Patient was noted to have mild aortic stenosis for which she will need to follow-up with primary care as outpatient. Patient had apparently been on 2 L oxygen continuously until a week prior to admission. She will be discharged on 2 L of oxygen continuously. Prednisone taper, Levaquin to complete treatment course as well as nebulizers. She will need to follow-up with primary care, pulmonology as outpatient. Patient is noted to have a history of stroke and is reportedly on Eliquis. She will be started back on Eliquis as well as aspirin. Patient was also noted to have iron deficiency anemia as well as vague abdominal pain. Imaging negative for vascular cause of abdominal pain. Gastroenterology was consulted, patient underwent EGD and colonoscopy which shows portal gastropathy. She will need follow-up with GI as outpatient. She was started on iron supplementation. For problem based summary from most recent progress note, please see below. //Acute hypercapnic respiratory failure- improving slowly //COPD exacerbation/ RLL pneumonia pCO2 in the 70s. Unknown baseline. -Chest x-ray with diffuse vascular prominence. -CTA chest negative for PE -echo with EF 60%/ no regional wall motion abnormalities and mild aortic stenosis -continue on IV steroids, antibiotic, neb treatment. -pulmonary following. = Discharge on oxygen 2 L via nasal cannula continuously. Taper to by mouth prednisone. Nebulizers continued. Levofloxacin to complete treatment course. Follow-up with pulmonology as outpatient. //Alcohol abuse/ withdrawal - continue on CIWA protocol //Mild aortic valve stenosis noted on echocardiogram. Normal ejection fraction follow-up with primary care. //Anemia; hypochromic, microcytic iron panel noted; occult blood negative. continue to monitor H/H. -EGD showing portal gastropathy. No signs of acute bleeding. Restart home anticoagulation. Patient will need to follow-up with GI as outpatient to go over biopsy results. //History of stroke. Reportedly on Eliquis. hold aspirin for now due to anemia till GI w/u completed. =restarted eliquis //Diabetes mellitus. Chronic. on steroids. diabetic diet and insulin sliding scale. Monitor. //elevated LFT's/ history of Cirrhosis/ Hepatitis C- continue to monitor. //DVT prophylaxis with SCD's she has a warrant for elder abuse and officer is at bedside. d/w the RN. Discharge Planning: Discharge to care of law enforcement. - Time Spent with Patient Total time spent providing and/or coordinating discharge services: Greater than 30 minutes - Quality: VTE Deep Vein Thrombosis/Pulmonary Embolism Present on Admission: No Exam Vital signs: Vital Signs 06/05/18 11:51 06/05/18 12:00 06/05/18 14:11 Temperature 97.4 F L Pulse Rate 87 80 Respiratory Rate 16 Blood Pressure 135/66 Pulse Oximetry 95 Pulse Oximetry [Resting on Room Air] 88 L 06/05/18 14:27 06/05/18 16:00 06/05/18 19:00 Temperature 98.0 F Pulse Rate 78 86 81 Respiratory Rate 18 16 17 Blood Pressure 115/58 L Pulse Oximetry 94 L 97 Pulse Oximetry [Resting on Room Air] 06/05/18 20:00 06/06/18 00:00 06/06/18 04:00 Temperature 98.1 F 98.9 F 97.7 F Pulse Rate 90 80 76 Respiratory Rate 18 18 20 Blood Pressure 114/55 L 119/62 125/74 Pulse Oximetry 92 L 93 L 92 L Pulse Oximetry [Resting on Room Air] 06/06/18 07:53 06/06/18 07:54 06/06/18 08:00 Temperature 97.4 F L Pulse Rate 91 H 91 H Respiratory Rate 20 20 Blood Pressure 122/55 L Pulse Oximetry 94 L 92 L Pulse Oximetry [Resting on Room Air] Intake & Output 06/05/18 06/06/18 06/06/18 18:59 06:59 18:59 Intake Total 1201.2 / 1201.2 240 / 240 Balance 1201.2 / 1201.2 240 / 240 Weight 96.3 kg Intake: IV 721.2 / 721.2 Venofer Inj 200 MG In NS Inj 110 / 110 100 ML @ 110 mls/hr IV.SIG ONCE ONE Rx#:[id number] Levaquin 500 mg Premix Inj 500 100 / 100 mg In 100 ml @ 100 mls/hr IV. SIG Q24H [facility] Rx#:[id number] MVI-12 Inj 10 ML Thiamine Inj 511.2 / 511.2 100 MG Folvite Inj 1 MG In 1/2 Normal Saline Inj 500 ML @ 127. 8 mls/hr IV.SIG Q24H [facility] Rx#: [id number] Oral 480 / 480 240 / 240 Other: # Voids 3 4 Date of Last Bowel Movement 06/05/18 06/04/18 # Bowel Movements 1 Results Procedures completed during hospitalization: No invasive procedures. Pending studies at discharge: Pending at discharge 06/04/18 07:21 Surgical [PTH] Routine Labs on day of discharge: Labs from last 24 hours 06/06/18 06/06/18 06/06/18 08:08 03:45 03:45 WBC 5.7 RBC 4.39 Hgb 9.0 L Hct 30.0 L MCV 68.4 L MCH 20.6 L MCHC 30.1 L RDW 23.3 H Plt Count 119 L MPV 8.6 Neut % (Auto) 86.7 H Lymph % (Auto) 5.7 L White % (Auto) 7.6 Eos % (Auto) 0.0 Baso % (Auto) 0.0 Neut # (Auto) 5.0 Lymph # (Auto) 0.3 L White # (Auto) 0.4 Eos # (Auto) 0.0 Baso # (Auto) 0.0 WBC Differential . Differential Comment Auto diff final Sodium 140 Potassium 4.6 Chloride 99 Carbon Dioxide 37.3 H Anion Gap 4 L BUN 23 H Creatinine 0.58 Estimated GFR Greater than 89 POC Glucose 146 H Random Glucose 127 H Calcium 7.9 L Phosphorus 3.6 Magnesium 2.0 Albumin 2.5 L 06/06/18 06/05/18 06/05/18 02:07 20:02 17:09 WBC RBC Hgb Hct MCV MCH MCHC RDW Plt Count MPV Neut % (Auto) Lymph % (Auto) White % (Auto) Eos % (Auto) Baso % (Auto) Neut # (Auto) Lymph # (Auto) [place] # (Auto) Eos # (Auto) Baso # (Auto) WBC Differential Differential Comment Sodium Potassium Chloride Carbon Dioxide Anion Gap BUN Creatinine Estimated GFR POC Glucose 152 H 119 H 80 Random Glucose Calcium Phosphorus Magnesium Albumin 06/05/18 11:35 WBC RBC Hgb Hct MCV MCH MCHC RDW Plt Count MPV Neut % (Auto) Lymph % (Auto) White % (Auto) Eos % (Auto) Baso % (Auto) Neut # (Auto) Lymph # (Auto) White # (Auto) Eos # (Auto) Baso # (Auto) WBC Differential Differential Comment Sodium Potassium Chloride Carbon Dioxide Anion Gap BUN Creatinine Estimated GFR POC Glucose 248 H Random Glucose Calcium Phosphorus Magnesium Albumin - Impressions ITS Impressions Chest CTA 05/31/18 00:00 CONCLUSION: This study is negative for pulmonary embolism. Abdomen CT 06/03/18 00:00 CONCLUSION: 1. Right lower lobe infiltrate with tiny bilateral pleural effusions. 2. Cirrhosis. 3. 2 cm cortical based lesion involving the left kidney felt to relate to a cyst. It can be further assessed with ultrasound of the kidneys as an outpatient. Abdomen MRI 06/04/18 07:01 CONCLUSION: No evidence of mesenteric arterial stenosis Chest X-Ray 06/04/18 16:07 CONCLUSION: 1. Mild bibasilar opacities, likely a combination of airspace disease and small amount of pleural fluid. 2. Stable enlargement of the cardiomediastinal silhouette. Discharge Plan - Discharge Disposition Patient Disposition: 71 Transfer To Other Facility - Discharge Condition Condition: Stable - Discharge Order Discharge Orders: Discharge Order (Routine); Ordered 11/14/18 Ordered By: Tay Shore - Discharge Details Anticipated Discharge Date: 06/06/18 - Physicians Team Primary Care Provider: UNKNOWN, Attending Provider: Tay Shore Other Providers: Donald Bennett MD ; Rosalie Monteiro MD
--- NOTE | 2018-06-06 13:15 | P.PNGI ---
Subjective Interval history: Sitting up in the bed smiling and conversational appears to be feeling much better dyspepsia much more controlled no obvious abdominal pain current hemoglobin 9 <Azeb Willingham M - Last Filed: 06/06/18 13:11> Physical Exam Vital signs: Vital Signs 06/05/18 14:11 06/05/18 14:27 06/05/18 16:00 Temperature 98.0 F Pulse Rate 78 86 Respiratory Rate 18 16 Blood Pressure 115/58 L Pulse Oximetry 94 L Pulse Oximetry [Resting on Room Air] 88 L 06/05/18 19:00 06/05/18 20:00 06/06/18 00:00 Temperature 98.1 F 98.9 F Pulse Rate 81 90 80 Respiratory Rate 17 18 18 Blood Pressure 114/55 L 119/62 Pulse Oximetry 97 92 L 93 L Pulse Oximetry [Resting on Room Air] 06/06/18 04:00 06/06/18 07:53 06/06/18 07:54 Temperature 97.7 F Pulse Rate 76 91 H Respiratory Rate 20 20 Blood Pressure 125/74 Pulse Oximetry 92 L 94 L Pulse Oximetry [Resting on Room Air] 06/06/18 08:00 06/06/18 10:55 Temperature 97.4 F L Pulse Rate 91 H 91 H Respiratory Rate 20 20 Blood Pressure 122/55 L Pulse Oximetry 92 L Pulse Oximetry [Resting on Room Air] Intake & Output 06/05/18 06/06/18 06/06/18 18:59 06:59 18:59 Intake Total 1201.2 / 1201.2 240 / 240 100 / 100 Balance 1201.2 / 1201.2 240 / 240 100 / 100 Weight 96.3 kg Intake: IV 721.2 / 721.2 100 / 100 Venofer Inj 200 MG In NS Inj 110 / 110 100 ML @ 110 mls/hr IV.SIG ONCE ONE Rx#:[id number] Levaquin 500 mg Premix Inj 500 100 / 100 100 / 100 mg In 100 ml @ 100 mls/hr IV. SIG [facility]H [facility] Rx#:[id number] MVI-12 Inj 10 ML Thiamine Inj 511.2 / 511.2 100 MG Folvite Inj 1 MG In 1/2 Normal Saline Inj 500 ML @ 127. 8 mls/hr IV.SIG Q[facility]H [facility] Rx#: [id number] Oral 480 / 480 240 / 240 Other: # Voids 3 4 Date of Last Bowel Movement 06/05/18 06/04/18 06/06/18 # Bowel Movements 1 - Constitutional no acute distress, obese, cooperative - Routine HEENT Exam Head: Present: normocephalic (Hard of hearing multiple teeth missing) ENT: Present: mucous membranes moist - Routine Respiratory Exam Present: diminished air movement (Eupneic respirations with oxygen per nasal cannula, no obvious shortness of breath) - Routine Cardiovascular Exam Present: S1, S2 - Routine Abdominal Exam Present: soft, normoactive bowel sounds <Azeb Willingham M - Last Filed: 06/06/18 13:11> Vital signs: Vital Signs 06/06/18 00:00 06/06/18 04:00 06/06/18 07:53 Temperature 98.9 F 97.7 F Pulse Rate 80 76 Respiratory Rate 18 20 Blood Pressure 119/62 125/74 Pulse Oximetry 93 L 92 L 94 L 06/06/18 07:54 06/06/18 08:00 06/06/18 10:55 Temperature 97.4 F L Pulse Rate 91 H 91 H 91 H Respiratory Rate 20 20 20 Blood Pressure 122/55 L Pulse Oximetry 92 L Intake & Output 06/06/18 06/06/18 06/07/18 06:59 18:59 06:59 Intake Total 240 / 240 340 / 340 Balance 240 / 240 340 / 340 Weight 96.3 kg Intake: IV 100 / 100 Levaquin 500 mg Premix Inj 500 100 / 100 mg In 100 ml @ 100 mls/hr IV. SIG Q24H [facility] Rx#:[id number] Oral 240 / 240 240 / 240 Other: # Voids 4 5 Date of Last Bowel Movement 06/04/18 06/06/18 # Bowel Movements 1 1 <Shawn Cornejo - Last Filed: 06/06/18 20:31> Results - Labs CBC & Chem 7: 06/06/18 03:45 06/06/18 03:45 Laboratory Results - last 24 hr 06/05/18 06/05/18 06/06/18 17:09 20:02 02:07 WBC RBC Hgb Hct MCV MCH MCHC RDW Plt Count MPV Neut % (Auto) Lymph % (Auto) [place] % (Auto) Eos % (Auto) Baso % (Auto) Neut # (Auto) Lymph # (Auto) [place] # (Auto) Eos # (Auto) Baso # (Auto) WBC Differential Differential Comment Sodium Potassium Chloride Carbon Dioxide Anion Gap BUN Creatinine Estimated GFR POC Glucose 80 119 H 152 H Random Glucose Calcium Phosphorus Magnesium Albumin 06/06/18 06/06/18 06/06/18 03:45 03:45 08:08 WBC 5.7 RBC 4.39 Hgb 9.0 L Hct 30.0 L MCV 68.4 L MCH 20.6 L MCHC 30.1 L RDW 23.3 H Plt Count 119 L MPV 8.6 Neut % (Auto) 86.7 H Lymph % (Auto) 5.7 L [place] % (Auto) 7.6 Eos % (Auto) 0.0 Baso % (Auto) 0.0 Neut # (Auto) 5.0 Lymph # (Auto) 0.3 L [place] # (Auto) 0.4 Eos # (Auto) 0.0 Baso # (Auto) 0.0 WBC Differential . Differential Comment Auto diff final Sodium 140 Potassium 4.6 Chloride 99 Carbon Dioxide 37.3 H Anion Gap 4 L BUN 23 H Creatinine 0.58 Estimated GFR Greater than 89 POC Glucose 146 H Random Glucose 127 H Calcium 7.9 L Phosphorus 3.6 Magnesium 2.0 Albumin 2.5 L - Procedures No invasive procedures. <Azeb Willingham - Last Filed: 06/06/18 13:11> - Labs CBC & Chem 7: 06/06/18 03:45 06/06/18 03:45 Laboratory Results - last 24 hr 06/03/18 06/06/18 06/06/18 17:10 02:07 03:45 WBC 5.7 RBC 4.39 Hgb 9.0 L Hct 30.0 L MCV 68.4 L MCH 20.6 L MCHC 30.1 L RDW 23.3 H Plt Count 119 L MPV 8.6 Neut % (Auto) 86.7 H Lymph % (Auto) 5.7 L [place] % (Auto) 7.6 Eos % (Auto) 0.0 Baso % (Auto) 0.0 Neut # (Auto) 5.0 Lymph # (Auto) 0.3 L [place] # (Auto) 0.4 Eos # (Auto) 0.0 Baso # (Auto) 0.0 WBC Differential . Differential Comment Auto diff final Sodium Potassium Chloride Carbon Dioxide Anion Gap BUN Creatinine Estimated GFR POC Glucose 152 H Random Glucose Calcium Phosphorus Magnesium Albumin HCV RNA (PCR) IUs/ml [id number] H HCV RNA PCR log IUs/ml 6.48 H 06/06/18 06/06/18 03:45 08:08 WBC RBC Hgb Hct MCV MCH MCHC RDW Plt Count MPV Neut % (Auto) Lymph % (Auto) [place] % (Auto) Eos % (Auto) Baso % (Auto) Neut # (Auto) Lymph # (Auto) [place] # (Auto) Eos # (Auto) Baso # (Auto) WBC Differential Differential Comment Sodium 140 Potassium 4.6 Chloride 99 Carbon Dioxide 37.3 H Anion Gap 4 L BUN 23 H Creatinine 0.58 Estimated GFR Greater than 89 POC Glucose 146 H Random Glucose 127 H Calcium 7.9 L Phosphorus 3.6 Magnesium 2.0 Albumin 2.5 L HCV RNA (PCR) IUs/ml HCV RNA PCR log IUs/ml <Shawn Cornejo - Last Filed: 06/06/18 20:31> Assessment and Plan - Plan obese 57-year-old female who was in her usual state of health up until 2017 when she was brought to the hospital for COPD, shortness of breath, and possible respiratory failure. Patient has a history of CVA and is been on Eliquis which is currently on hold. Patient is now complaining of left upper quadrant radiating over to the right upper quadrant abdominal pain worsening after eating over the past 2 months. Aggregating factors could be related to patient's hepatitis C diagnosed approximately 40 years ago without any treatment regimen versus constipation versus cirrhosis with also a history of daily alcohol consumption up until the past week. Current labs reviewed which show hemoglobin 8.7 PT/INR 1.3. Patient is very hard of hearing. Patient notes that she is been in [place] up until approximately 1 year ago when she was diagnosed with the cirrhosis. Patient notes that she has had labs drawn in the past but is a poor historian. Patient denies any family history of colon cancer. She does note previous EGD colonoscopy several years ago but unknown timing and findings. Patient also notes uncontrolled symptoms of nausea and reflux and states that she has been on Protonix daily up until approximately a week ago but symptoms have continued for several months to be uncontrolled with dyspepsia, reflux, but no dysphasia. Gastroenterology has been consulted to assist in her care. Note patient is restrained with regards, was arrested approximately 1 week ago when she started having shortness of breath and COPD exacerbation possible respiratory failure. Patient was seen per pulmonary medicine, who states she is stable for EGD and colonoscopy Monday Dyspepsia, also has symptoms of nausea and reflux GERD, has been on Protonix up until approximately 1 week ago but states that her dyspepsia symptoms have worsened over the past few months Left upper quadrant pain radiating into the mid and right upper quadrant, history of hepatitis C with cirrhosis and no previous treatment regimen. Was in [place] approximately 1 year ago when diagnosis occurred History of CVA was on Eliquis currently be inhaled Anemia probably related to chronic disease 06/03/2018 patient is resting in the bed appears to be feeling somewhat better today and a little more alert. Still complains of left upper quadrant pain which radiates into the mid epigastric region this could be related to dyspepsia or some type of vascular blockage. Will evaluate EGD: In the a.m. but will rule out any acute vascular needs with MRA of the abdomen with contrast today. Labs reviewed which show hemoglobin 8.9 and WBC count 5.9 Anemia probably related to chronic disease, further recommendations to follow after EGD/colonoscopy tomorrow. Occult blood testing per hospitalist still pending 06/05/2018 patient is status post EGD/ colonoscopy on 06/05/2018. Findings include Portal gastropathy and Ascending colon erythema. Discussed findings with patient but she is still complaining of left upper quadrant discomfort fairly constant. Patient still complains of dyspepsia and is back on her Protonix. Liver labs reviewed which does show active hep C and positive antibodies, RNA pending, alpha-fetoprotein normal at 4.7. Normal bilirubin 0.6, elevated AST 130, ALT 71, alkaline phosphatase 88. Left upper quadrant pain unspecified unless it is related to a sending colon erythema. Hemoglobin 9.4, no leukocytosis noted 06/06 patient's feeling much better today no obvious shortness of breath tolerating oxygen per nasal cannula without distress dyspepsia symptoms much more controlled no abdominal pain chief complaint is patient is practically edentulous and needs diet changed for chopped meats and soft foods. Appears to be stable from a GI standpoint okay for discharge and can follow-up in the office for biopsies pending. Diet change made for discharge, continue Carafate and Protonix for now okay to restart Eliquis PLAN Diet low-salt, cardiac diet, soft foods chopped foods especially meats Biopsies pending Protonix 40 mg twice daily, Add Carafate 1 g before meals and at bedtime Eliquis supportive care Patient was seen per myself and Dr. Cornejo, note was written on his behalf <Azeb Willingham - Last Filed: 06/06/18 13:11> - Plan Agree with above note and plan, continue current medication, lowest possible dose of anticoagulation, we will follow-up as needed <Shawn Cornejo - Last Filed: 06/06/18 20:31>
[2018-06-06 19:53] LABS: Hepatitis C RNA (PCR) log IUs 6.48
== END 2018-06-06 12:07 | disposition short-term general hospital (02) ==
LOC: NEPD 16:17 → NEDA 20:44 → HIMC 22:20 → N04 06-04 12:21
PROVIDERS: ADMIT Internal Medicine; ATTEND Internal Medicine
PROC: PANENDO (2018-06-04 16:50)
PROC: COLONOS (2018-06-04 16:50)